=== PATIENT | male | born 1955 | race Caucasian/White ===

== ENCOUNTER → 2017-03-29 | Outpatient (CLI) | payer OTHER | LOC: BMCIMAGING 15:12 | PROVIDERS: ATTEND Internal Medicine Rheumatology | DX: M25.711 Osteophyte, right shoulder (principal); M25.712 Osteophyte, left shoulder; M19.011 Primary osteoarthritis, right shoulder; M19.012 Primary osteoarthritis, left shoulder; M17.12 Unilateral primary osteoarthritis, left knee ==

== ENCOUNTER 2017-04-20 05:52 | Emergency (ER) | payer OTHER ==
[2017-04-20 06:01] VITALS: RESP 16
--- NOTE | 2017-04-20 06:10 | EDPHY ---
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 Patient presents emergency room stating that he noticed when he got up this morning there was a boy ill and area of redness on the inner right thigh he became extremely concern as last time he had a hip infection it started out like this. He immediately came to the emergency room he does not have a fever any pain. He does tell me that he squeezed on the boil and did get drainage out. States white discharge. He states his symptoms just came on this morning. He is requesting here in emergency room IV antibiotics as he has had extensive complications from skin infection in the past. Of note upon arrival here he appears well nontoxic is very small area approximately 3 cm x 4 cm of non indurated no fluctuance area of redness on the inner thigh. There is a center area of darker pigmentation where this may have been the head of the boil. Otherwise no other areas of infection on his leg. This area is soft and minimally tender. Past Medical History: Hypertension, hyperlipidemia Past Surgical History: Right hip surgery with multiple revisions and a wound VAC from infection of the right hip prosthesis Social History: Denies daily use of drugs alcohol tobacco products, works here in the operating room Family History: Noncontributory ROS REVIEW OF SYSTEMS: A comprehensive 10 point review of systems is otherwise negative aside from elements mentioned in the history of present illness. Exam Constitutional triage nursing summary reviewed, vital signs reviewed, awake/ alert. Eyes normal conjunctivae and sclera, EOMI, PERRLA. HENT normal inspection, atraumatic, moist mucus membranes, no epistaxis, neck supple/ no meningismus, no raccoon eyes. Respiratory clear to auscultation bilaterally, normal breath sounds, no respiratory distress, no wheezing. Cardiovascular rate normal, regular rhythm, no murmur, no edema, distal pulses normal. Gastrointestinal soft, non-tender, no rebound, no guarding, normal bowel sounds, no distension, no pulsatile mass. Genitourinary no CVA tenderness. Musculoskeletal no midline vertebral tenderness, full range of motion, no calf swelling, no tenderness of extremities, no meningismus, good pulses, neurovascularly intact. Skin right thigh: Inner thigh region: Of note upon arrival here he appears well nontoxic is very small area approximately 3 cm x 4 cm of non indurated no fluctuance area of redness on the inner thigh. There is a center area of darker pigmentation where this may have been the head of the boil. pink, warm, & dry, no rash, skin atraumatic. Neurologic awake, alert and oriented x 3, AAOx3, moves all 4 extremities equally, motor intact, sensory intact, CN II-XII intact, normal cerebellar, normal vision, normal speech. Psychiatric normal mood/affect. Heme/Lymph/Immune no lymphadenopathy. Differential Diagnosis: Includes but is not limited to in a particular order, inner thigh cellulitis, [place], staph infection, MRSA, early abscess Medical Decision Making: Plan for this patient IV establishment check basic blood work including inflammatory markers ESR CRP, will give a dose of vancomycin here in the emergency room. We will also ultrasound this area to see if there is a pocket of pus. To see if there is anything that needs to be drained. Re-evaluation: 0629AM: I did do a bedside ultrasound images are saved on the ultrasound machine. There is no pus pocket or area that could be drained. There is cellulitis seen on the ultrasound. This may be due the patient draining it prior to arrival. Given that there is no large back pocket patient received IV vancomycin here and then I do recommend that he goes home on antibiotics Keflex and Bactrim and warm compresses 3 times a day for 20 minutes. He understands to watch this area very closely for further or worsening signs of infection this includes spreading of redness, worsening pain, worsening swelling or if he has any questions or concerns. If he has worsening symptoms he understands return emergency room immediately. At this time this areas located right inner thigh small circular area. No significant induration or fluctuance. No other cellulitic lesions on the leg. Does not involve the joint or hip. 0732AM: Patient is currently getting IV vancomycin. Once this is finished allowed to go home. He will be placed on Keflex and Bactrim. Blood work reviewed. No high white count inflammatory markers normal. Understands return precautions. Source: Patient - Personal History Current Tetanus/Diphtheria Vaccine: Yes Current Tetanus Diphtheria and Acellular Pertussis (TDAP): Yes Tetanus Vaccine Date: <10 YRS - Medical/Surgical History Hx Asthma: No Hx Chronic Respiratory Disease: No Hx Diabetes: No Hx Cardiac Disease: Yes Hx Renal Disease: No Hx Cirrhosis: No Hx Alcoholism: No Hx HIV/AIDS: No Hx Splenectomy or Spleen Trauma: No Other PMH: arthritis/r hip replacement; HTN, R shoulder surg, hypeerlipidemia - Social History Smoking Status: Former smoker Constitutional: Initial Vital Signs Temperature (C) 36.6 C 04/20/17 05:58 Heart Rate 75 04/20/17 05:58 Respiratory Rate 16 04/20/17 05:58 Blood Pressure 149/100 H 04/20/17 05:58 O2 Sat (%) 95 04/20/17 05:58 O2 Delivery Mode Room Air Allergies/Adverse Reactions: oxycodone HCl [From OxyContin] Allergy (Intermediate, Verified 04/20/17 05:55) Rash doxycycline Allergy (Mild, Verified 04/20/17 05:55) TURNED RED Home Medications: Medication Instructions Recorded Losartan/Hctz 50/12.5 [Hyzaar 1 tab PO DAILY 10/29/12 50/12.5MG (RX)] Aspirin [Aspirin 81mg (OTC)] 81 mg PO DAILY 01/11/13 Ibuprofen 600 mg PO Q4 PRN 01/11/13 Metoprolol Succinate Xr [Toprol Xl 50 mg PO DAILY 01/11/13 50 mg (RX)] Multivitamins [Tab-A-Caryn] 1 each PO DAILY 01/11/13 EPINEPHrine [Epipen 0.3 MG (RX)] 0.3 mg IM ONCE #1 syr 05/27/15 Cephalexin [Keflex (*)] 500 mg PO Q6H #28 cap 04/20/17 Simvastatin 04/20/17 Sulfamethox/Tmp 800/160 mg 1 tab PO BID #14 tab 04/20/17 [Bactrim Ds] Medical Decision Making - Data Points Laboratory Results: Laboratory Results 04/20/17 06:30 04/20/17 06:30 04/20/17 04/20/17 06:30 06:30 WBC 5.41 10^3/uL 10^3/uL (3.80-9.50) RBC 4.40 10^6/uL 10^6/uL (4.40-6.38) Hgb 13.8 g/dL g/dL (13.7-17.5) Hct 40.6 % % (40.0-51.0) MCV 92.3 fL fL (81.5-99.8) MCH 31.4 pg pg (27.9-34.1) MCHC 34.0 g/dL g/dL (32.4-36.7) RDW 13.3 % % (11.5-15.2) Plt Count 160 10^3/uL 10^3/uL (150-400) MPV 9.1 fL fL (8.7-11.7) Neut % (Auto) 57.9 % % (39.3-74.2) Lymph % (Auto) 19.8 % % (15.0-45.0) [place] % (Auto) 16.6 % H % (4.5-13.0) Eos % (Auto) 4.3 % % (0.6-7.6) Baso % (Auto) 0.7 % % (0.3-1.7) Nucleat RBC Rel Count 0.0 % % (0.0-0.2) Absolute Neuts (auto) 3.13 10^3/uL 10^3/uL (1.70-6.50) Absolute Lymphs (auto) 1.07 10^3/uL 10^3/uL (1.00-3.00) Absolute Monos (auto) 0.90 10^3/uL H 10^3/uL (0.30-0.80) Absolute Eos (auto) 0.23 10^3/uL 10^3/uL (0.03-0.40) Absolute Basos (auto) 0.04 10^3/uL 10^3/uL (0.02-0.10) Absolute Nucleated RBC 0.00 10^3/uL 10^3/uL (0-0.01) Immature Gran % 0.7 % % (0.0-1.1) Immature Gran # 0.04 10^3/uL 10^3/uL (0.00-0.10) ESR 8 MM/HR MM/HR (0-20) Sodium 132 mEq/L L mEq/L (134-144) Potassium 4.3 mEq/L mEq/L (3.5-5.2) Chloride 102 mEq/L mEq/L (97-110) Carbon Dioxide 23 mEq/l mEq/l (22-31) Anion Gap 7 mEq/L L mEq/L (8-16) BUN 24 mg/dL H mg/dL (7-23) Creatinine 0.9 mg/dL mg/dL (0.7-1.3) Estimated GFR > 60 Glucose 101 mg/dL H mg/dL (70-100) Calcium 9.3 mg/dL mg/dL (8.5-10.4) C-Reactive Protein < 5.0 mg/L mg/L (<10.0) Departure - Departure Disposition: Home, Routine, Self-Care Clinical Impression: Cellulitis Qualifiers: Site of cellulitis: extremity Site of cellulitis of extremity: lower extremity Laterality: right Qualified Code(s): L03.115 - Cellulitis of right lower limb Condition: Good Instructions: Cellulitis (ED) Additional Instructions: 1. Watch this area closely if you feel that is getting worse including spreading , larger area, worsening pain or fever or you have concerns about a please return emergency room. 2. Use warm compresses 3 times a day for 20 minutes. 3. I recommend he take both antibiotics Keflex and Bactrim. 4. Return emergency room if you have any further symptoms questions or concerns I do recommend close follow-up with her primary care doctor. Referrals: Leonardo Foy MD [Primary Care Provider] - As per Instructions Prescriptions: Cephalexin [Keflex (*)] 500 mg PO Q6H #28 cap Sulfamethox/Tmp 800/160 mg [Bactrim Ds] 1 tab PO BID #14 tab
[2017-04-20] MEDS ORDERED: VANCOMYCIN 1.5 GM in D5W 250 ML IV ONE (06:22)
[2017-04-20 06:38] LABS: % IMMATURE GRANULYOCYTES 0.7 % (0.0-1.1); ABSOLUTE IMMATURE GRANULOCYTES 0.04 10^3/uL (0.00-0.10); ADD DIFF? NO; ADD MORPH? NO; ADD SCAN? NO; ATYPICAL LYMPHOCYTE FLAG 0 (0-99); FRAGMENT RBC FLAG 0 (0-99); HEMATOCRIT 40.6 % (40.0-51.0); HEMOGLOBIN 13.8 g/dL (13.7-17.5); LEFT SHIFT FLG 0 (0-99); LIPEMIA HEMOLYSIS FLAG 90 (0-99); MEAN CELL HEMOGLOBIN 31.4 pg (27.9-34.1); MEAN CELL VOLUME 92.3 fL (81.5-99.8); MEAN PLATELET VOLUME 9.1 fL (8.7-11.7); PLATELET CLUMPS FLAG 0 (0-99); PLATELET COUNT 160 10^3/uL (150-400); RED CELL DISTRIBUTION WIDTH 13.3 % (11.5-15.2)
[2017-04-20 06:49] LABS: SEDIMENTATION RATE 8 MM/HR (0-20)
[2017-04-20 06:53] LABS: ANION GAP 7 mEq/L (8-16); C-REACTIVE PROTEIN < 5.0 mg/L (<10.0); CALCIUM 9.3 mg/dL (8.5-10.4); CARBON DIOXIDE 23 mEq/l (22-31); CHLORIDE 102 mEq/L (97-110); CREATININE 0.9 mg/dL (0.7-1.3); GLOMERULAR FILTRATION RATE > 60; GLUCOSE 101 mg/dL (70-100); POTASSIUM 4.3 mEq/L (3.5-5.2); SODIUM 132 mEq/L (134-144)
[2017-04-20 09:58] VITALS: BP 113/72; PULSE 65; TEMP 97.5; O2SAT 93
== END 2017-04-20 09:57 | disposition home or self-care (01) ==
DX: L03.115 Cellulitis of right lower limb (principal); I10 Essential (primary) hypertension; Z79.82 Long term (current) use of aspirin; Z87.891 Personal history of nicotine dependence
CPT/HCPCS: 96365; 96366; J3370

== ENCOUNTER 2017-07-03 11:47 | Emergency (ER) | payer OTHER ==
[2017-07-03 11:56] VITALS: BP 127/90; PULSE 82; RESP 18; TEMP 98.2; O2SAT 92
[2017-07-03] MEDS ORDERED: PROPARACAINE 0.5% 15 ML OPHT DROP ONE (13:11)
[2017-07-03] MEDS ORDERED: FLUORESCEIN SODIUM 1 MG STRIP OP ONE (13:11)
--- NOTE | 2017-07-03 13:30 | EDPHY ---
H & P Time Seen by Provider: 07/03/17 13:22 HPI/ROS: CHIEF COMPLAINT: Eye pain HISTORY OF PRESENT ILLNESS: The patient is a 62-year-old male presenting with acute left eye injury. The patient's badge hit his left eye while trying to badge in today. Initially he had moderate pain in his left eye. The pain has now resolved, but continues to be red. No change in vision. The patient wears glasses. He denies headache. Past Medical/Surgical History: Arthritis, Hypertension PSH: Right shoulder surgery, Right hip replacement Social History: Employee at [employer]. Smoking Status: Former smoker Physical Exam: EYE exam: Lids: no proptosis, no periorbital erythema or swelling, no vesicles Conjunctivae: Erythema on medial aspect, no discharge Pupils: equal round and reactive to light EOMI Cornea: Normal inspection, fluorescein exam is normal Anterior chamber: Clear, no hyphema Constitutional: Initial Vital Signs Temperature (C) 36.8 C 07/03/17 11:54 Heart Rate 82 07/03/17 11:54 Respiratory Rate 18 07/03/17 11:54 Blood Pressure 127/90 H 07/03/17 11:54 O2 Sat (%) 92 07/03/17 11:54 O2 Delivery Mode Room Air Allergies/Adverse Reactions: oxycodone HCl [From OxyContin] Allergy (Intermediate, Verified 07/03/17 11:52) Rash doxycycline Allergy (Mild, Verified 07/03/17 11:52) TURNED RED Home Medications: Medication Instructions Recorded Losartan/Hctz 50/12.5 [Hyzaar 1 tab PO DAILY 10/29/12 50/12.5MG (RX)] Aspirin [Aspirin 81mg (OTC)] 81 mg PO DAILY 01/11/13 Ibuprofen 600 mg PO Q4 PRN 01/11/13 Metoprolol Succinate Xr [Toprol Xl 50 mg PO DAILY 01/11/13 50 mg (RX)] Multivitamins [Tab-A-Caryn] 1 each PO DAILY 01/11/13 EPINEPHrine [Epipen 0.3 MG (RX)] 0.3 mg IM ONCE #1 syr 05/27/15 Simvastatin 04/20/17 Medical Decision Making ED Course/Re-evaluation: There is no evidence of corneal abrasion. Differential Diagnosis: Differential diagnosis includes hyphema, acute iritis, traumatic mydriasis, corneal abrasion, globe rupture. Departure - Departure Disposition: Home, Routine, Self-Care Clinical Impression: Eye injury Qualifiers: Encounter type: initial encounter Laterality: left Qualified Code(s): S05.92XA - Unspecified injury of left eye and orbit, initial encounter Condition: Good Instructions: Eye Pain (ED) Additional Instructions: If you develop a change in vision, increased eye pain, headache, or worsening concerns please followup with your [facility]. Referrals: Stefania Maldonado RN, NURSING ADMIN [Primary Care Provider] - As per Instructions Francine Crook MD [Medical Doctor] - As per Instructions () Report Scribed for: Funmilayo Mathews Report Scribed by: Lucy Parks Date of Report: 07/03/17 Time of Report: 13:31 Physician Review and Approval Statement: 07/03/17 13:31 Portions of this note were transcribed by a medical claims representative. I personally performed the history, physical exam, and medical decision-making; and confirmed the accuracy of the information in the transcribed note.
== END 2017-07-03 13:45 | disposition home or self-care (01) ==
DX: S05.92XA Unspecified injury of left eye and orbit, initial encounter (principal); I10 Essential (primary) hypertension; Z79.82 Long term (current) use of aspirin; Z87.891 Personal history of nicotine dependence; W22.8XXA Striking against or struck by other objects, initial encounter

== ENCOUNTER → 2017-11-28 | Outpatient (CLI) | payer OTHER | LOC: FIMAGING 09:13 | DX: J18.9 Pneumonia, unspecified organism (principal) ==

== ENCOUNTER 2018-03-11 09:55 | Emergency (ER) | payer OTHER ==
[2018-03-11 11:00] LABS: PLATELET COUNT 241 10^3/uL (150-400)
[2018-03-11] MEDS ORDERED: IOPAMIDOL (ISOVUE-300) 100 ML BTL ONE (11:15)
--- NOTE | 2018-03-11 11:19 | EDPHY ---
H & P Stated Complaint: LLQ abd pain x 4 days, blood in stool starting yest. Time Seen by Provider: 03/11/18 10:09 HPI/ROS: 62-year-old male presents complaining approximately 3-4 days of left lower quadrant pain and diarrhea and then noted yesterday large amount of blood in his stool however no blood in his stool today. He denies ever having seen blood in his stool prior to this episode he denies history of hemorrhoids. He does have a prior history of diverticulitis, approximately 4 years ago. Review of systems As per HPI General no fever no chills no weakness HEENT no eye pain no eye discharge. No eye redness, no sore throat Respiratory no cough, no shortness of breath Cardiac no chest pain, no peripheral edema GI positive abdominal pain positive diarrhea positive blood in stool no constipation, no nausea, no vomiting no flank pain, no hematuria, no dysuria Musculoskeletal no myalgias, no joint pain Heme no easy bruising, no easy bleeding Endo no polyuria, no polydipsia Skin no rashes, no pruritus Neuro no syncope, no dizziness, no headaches Psych is no suicidal ideation, no homicidal ideation Source: Patient Exam Limitations: No limitations - Personal History Current Tetanus Diphtheria and Acellular Pertussis (TDAP): Yes Tetanus Vaccine Date: <10 YRS - Medical/Surgical History Hx Asthma: No Hx Chronic Respiratory Disease: No Hx Diabetes: No Hx Cardiac Disease: Yes Hx Renal Disease: No Hx Cirrhosis: No Hx Alcoholism: No Hx HIV/AIDS: No Hx Splenectomy or Spleen Trauma: No Other PMH: arthritis/r hip replacement; HTN, R shoulder surg, hypeerlipidemia - Family History Significant Family History: No pertinent family hx - Social History Smoking Status: Former smoker Alcohol Use: None Drug Use: None - Physical Exam Exam: 62-year-old male alert and oriented no acute distress nontoxic appearance, afebrile, slightly pale HEENT atraumatic normocephalic, extraocular muscles intact, anicteric Oropharynx negative for erythema negative exudate, tolerating her own secretions Neck supple no meningismus Lungs clear to auscultation bilaterally Heart regular rate and rhythm without murmur rub or gallop Abdomen nondistended normoactive bowel sounds soft, very mild llq ttp, no guarding ,no rebound rectal light brown stool, no hemmrhoids, stool sent for occult blood-negative Back no CVA tenderness, no step-offs, no spinal tenderness Extremities no cyanosis clubbing or edema Neuro alert and oriented, no focal deficits Constitutional: Initial Vital Signs Temperature (C) 36.8 C 03/11/18 10:06 Heart Rate 88 03/11/18 10:06 Respiratory Rate 16 03/11/18 10:06 Blood Pressure 107/74 03/11/18 10:06 O2 Sat (%) 94 03/11/18 10:06 O2 Delivery Mode Room Air Allergies/Adverse Reactions: oxycodone HCl [From OxyContin] Allergy (Intermediate, Verified 07/03/17 11:52) Rash doxycycline Allergy (Mild, Verified 07/03/17 11:52) TURNED RED Home Medications: Medication Instructions Recorded Losartan/Hctz 50/12.5 [Hyzaar 1 tab PO DAILY 10/29/12 50/12.5MG (RX)] Aspirin [Aspirin 81mg (OTC)] 81 mg PO DAILY 01/11/13 Ibuprofen 600 mg PO Q4 PRN 01/11/13 Metoprolol Succinate Xr [Toprol Xl 50 mg PO DAILY 01/11/13 50 mg (RX)] Multivitamins [Tab-A-Caryn] 1 each PO DAILY 01/11/13 EPINEPHrine [Epipen 0.3 MG (RX)] 0.3 mg IM ONCE #1 syr 05/27/15 Simvastatin 04/20/17 Amoxicillin/Clavulanate Pot 875 mg PO BID #20 tab 03/11/18 [Augmentin 875 MG TAB (*)] Medical Decision Making - Diagnostics Imaging Results: Imaging Impressions Abdomen CT 03/11/18 10:25 Impression: 1. No definite diverticulitis although diverticulosis is seen. 2. Mild thickening of the wall of the descending and sigmoid colon as well as the rectosigmoid area which could reflect colitis. 3. See above report for additional findings. Results called and discussed with Aracelis Ohara MD on 03/11/2018 at 12:00 ED Course/Re-evaluation: Pt seen and evaluated for llq pain ,diarrhea, blood in stool. Iv established, given one liter normal saline labs sent cbc nml wbc, with slight elevated % bands hgb 12.8, after fluids hgb 10 electrolytes na and cl low on initial labs, after fluids improving CT abdomen diverticuli noted, possibly early or mild diverticulitis, some thickened descending colon c/w colitis Imp/Plan 1) llq pain, diarrhea, left shift- possible early diverticultis, tolerating p.o. will start augmentin 2) blood in stool by hx yesterday, diverticuli on CT occult neg today., Hgb 12 and 10 afer hydration pt feeling well but anemia concerning for diverticular bleed needs colonoscopy discussed with pt about admission versus home with immediate return if any further bleeding and to contact [place] first thing Monday morning to see about arranging colonoscopy 3) hyponatremia Patient states he drank a massive amount of water over the last 4 days so I suspect this is hypervolemic hyponatremia, initially I was concerned that it may be hyponatremia with dehydration and had given this patient 2 L of normal saline he did have an increase in his sodium after the 2 L of normal saline from 124-127 Later revealed that he had been drinking massive amounts of water. I advised him to cut back on the water to include Gatorade or Pedialyte in his fluid replacement. Differential Diagnosis: Differential diagnosis considered but not limited to Diverticulitis, diverticulosis, pancreatitis, coli cystitis, appendicitis, diverticular bleeding, lower GI bleeding, hemorrhoids - Data Points Laboratory Results: Laboratory Results 03/11/18 13:15 03/11/18 13:15 03/11/18 03/11/18 03/11/18 13:15 13:15 12:34 WBC RBC Hgb 10.8 g/dL L g/dL (13.7-17.5) Hct 31.0 % L % (40.0-51.0) MCV MCH MCHC RDW Plt Count MPV Neut % (Auto) Lymph % (Auto) [place] % (Auto) Eos % (Auto) Baso % (Auto) Nucleat RBC Rel Count Absolute Neuts (auto) Absolute Lymphs (auto) Absolute Monos (auto) Absolute Eos (auto) Absolute Basos (auto) Absolute Nucleated RBC Immature Gran % Seg Neutrophils % Band Neutrophils % Lymphocytes % Monocytes % Eosinophils % Immature Gran # Absolute Seg Neuts Absolute Band Neuts Absolute Lymphocytes Absolute Monocytes Absolute Eosinophils Platelet Estimate Sodium 127 mEq/L L mEq/L (135-145) Potassium 4.6 mEq/L mEq/L (3.5-5.2) Chloride 99 mEq/L mEq/L (97-110) Carbon Dioxide 19 mEq/l L mEq/l (22-31) Anion Gap 9 mEq/L mEq/L (8-16) BUN 21 mg/dL mg/dL (7-23) Creatinine 1.0 mg/dL mg/dL (0.7-1.3) Estimated GFR > 60 Glucose 90 mg/dL mg/dL (70-100) Calcium 8.0 mg/dL L mg/dL (8.5-10.4) Total Bilirubin AST ALT Alkaline Phosphatase Total Protein Albumin Lipase Stool Occult Bld Scrn NEGATIVE (NEGATIVE) 03/11/18 03/11/18 10:25 10:25 WBC 6.62 10^3/uL 10^3/uL (3.80-9.50) RBC 4.07 10^6/uL L 10^6/uL (4.40-6.38) Hgb 12.7 g/dL L g/dL (13.7-17.5) Hct 36.4 % L % (40.0-51.0) MCV 89.4 fL fL (81.5-99.8) MCH 31.2 pg pg (27.9-34.1) MCHC 34.9 g/dL g/dL (32.4-36.7) RDW 13.2 % % (11.5-15.2) Plt Count 241 10^3/uL 10^3/uL (150-400) MPV 8.6 fL L fL (8.7-11.7) Neut % (Auto) Not Reported Lymph % (Auto) Not Reported [place] % (Auto) Not Reported Eos % (Auto) Not Reported Baso % (Auto) Not Reported Nucleat RBC Rel Count 0.0 % % (0.0-0.2) Absolute Neuts (auto) Not Reported Absolute Lymphs (auto) Not Reported Absolute Monos (auto) Not Reported Absolute Eos (auto) Not Reported Absolute Basos (auto) Not Reported Absolute Nucleated RBC 0.00 10^3/uL 10^3/uL (0-0.01) Immature Gran % Not Reported Seg Neutrophils % 52 % % Band Neutrophils % 13 % % Lymphocytes % 14 % % Monocytes % 18 % % Eosinophils % 3 % % Immature Gran # Not Reported Absolute Seg Neuts 3.4 K/MM3 K/MM3 (1.8-7) Absolute Band Neuts 0.9 K/MM3 H K/MM3 (0-0.7) Absolute Lymphocytes 0.9 K/mm3 L K/mm3 (1.0-4.8) Absolute Monocytes 1.2 K/mm3 H K/mm3 (0-0.8) Absolute Eosinophils 0.2 K/mm3 K/mm3 (0-0.5) Platelet Estimate ADEQUATE (ADEQ) Sodium 124 mEq/L L mEq/L (135-145) Potassium 4.7 mEq/L mEq/L (3.5-5.2) Chloride 94 mEq/L L mEq/L (97-110) Carbon Dioxide 18 mEq/l L mEq/l (22-31) Anion Gap 12 mEq/L mEq/L (8-16) BUN 24 mg/dL H mg/dL (7-23) Creatinine 1.1 mg/dL mg/dL (0.7-1.3) Estimated GFR > 60 Glucose 95 mg/dL mg/dL (70-100) Calcium 9.4 mg/dL mg/dL (8.5-10.4) Total Bilirubin 0.7 mg/dL mg/dL (0.1-1.4) AST 17 IU/L IU/L (17-59) ALT 26 IU/L IU/L (21-72) Alkaline Phosphatase 78 IU/L IU/L (38-126) Total Protein 7.1 g/dL g/dL (6.3-8.2) Albumin 3.7 g/dL g/dL (3.5-5.0) Lipase 504 IU/L H IU/L (23-300) Stool Occult Bld Scrn Medications Given: Discontinued Medications Amoxicillin/Clavulanate Potassium (Augmentin 875mg) 875 mg PO EDNOW ONE PRN Reason: Protocol Stop: 03/11/18 14:34 Last Admin: 03/11/18 14:40 Dose: 875 mg Sodium Chloride (Ns) 1,000 mls @ 0 mls/hr IV ONCE ONE PRN Reason: Wide Open Stop: 03/11/18 11:52 Last Admin: 03/11/18 11:55 Dose: 1,000 mls Sodium Chloride (Ns) 1,000 mls @ 0 mls/hr IV ONCE ONE PRN Reason: Wide Open Stop: 03/11/18 12:33 Last Admin: 03/11/18 12:44 Dose: 1,000 mls Departure - Departure Disposition: Home, Routine, Self-Care Clinical Impression: Diverticulitis large intestine, Lower GI bleeding Condition: Good Instructions: Gastrointestinal Bleeding (ED), Diverticulitis (ED), Rectal Bleeding (ED), Diverticulitis Diet (ED) Referrals: Stefania Mitchell, RN, [facility] [employer] [employer] [Primary Care Provider] - As per Instructions Prescriptions: Amoxicillin/Clavulanate Pot [Augmentin 875 MG TAB (*)] 875 mg PO BID #20 tab
[2018-03-11] MEDS ORDERED: NS 1,000 ML IV ONE ×2 (11:51→12:32)
[2018-03-11] MEDS ORDERED: AMOXICILLIN/CLAVULANATE POT 875/125 MG TAB PO ONE (14:33)
[2018-03-11 14:45] VITALS: BP 147/84
== END 2018-03-11 14:43 | disposition home or self-care (01) ==
LOC: CED 09:55
DX: K57.33 Diverticulitis of large intestine without perforation or abscess with bleeding (principal); I10 Essential (primary) hypertension; R19.7 Diarrhea, unspecified; Z79.82 Long term (current) use of aspirin; Z87.891 Personal history of nicotine dependence
CPT/HCPCS: 74177-PO; 80048-PO; 80053-PO; 82270-PO; 83690-PO; 85014-PO; 85018-PO; 85025-PO; Q9967

== ENCOUNTER 2018-04-02 10:03 | Inpatient (IN) | payer OTHER ==
--- NOTE | 2018-04-02 10:17 | CPEKG ---
Heart Rate: 84 RR Interval: 714 P-R Interval: 168 QRSD Interval: 94 QT Interval: 364 QTC Interval: 431 P Humphrey: 23 QRS Humphrey: 59 T Wave Humphrey: 8 EKG Severity - OTHERWISE NORMAL ECG - EKG Impression: SINUS RHYTHM EKG Impression: VENTRICULAR PREMATURE COMPLEX Electronically Signed By: Manuel Dial 02-Apr-2018 11:07:22
[2018-04-02] MEDS ORDERED: NS 500 ML IV ONE (10:18)
[2018-04-02] MEDS ORDERED: IOPAMIDOL (ISOVUE 370) 100 ML BTL IV ONE (10:27)
--- NOTE | 2018-04-02 10:27 | EDPHY ---
H & P <JayroManuel cowart - Last Filed: 04/02/18 10:42> Stated Complaint: l abd pain/hx diverticulitis - Personal History Current Tetanus/Diphtheria Vaccine: Yes Tetanus Vaccine Date: <10 YRS - Medical/Surgical History Hx Asthma: No Hx Chronic Respiratory Disease: No Hx Diabetes: No Hx Cardiac Disease: No Hx Renal Disease: No Hx Cirrhosis: No Hx Alcoholism: No Hx HIV/AIDS: No Hx Splenectomy or Spleen Trauma: No Other PMH: arthritis/r hip replacement; HTN, R shoulder surg, hypeerlipidemia diverticulitis - Social History Smoking Status: Former smoker <Kendra Camargo - Last Filed: 04/02/18 13:23> Time Seen by Provider: 04/02/18 10:09 HPI/ROS: CHIEF COMPLAINT: "I am dizzy and my kidneys hurt" HISTORY OF PRESENT ILLNESS: 62-year-old male history of diverticulitis, seen most recently at [facility] diagnosed with diverticulitis and started on Augmentin on 03/11/2018, states that he has been feeling weak and tired, worse this morning when he came to work (today is Monday ). 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 He states that since this morning he has been feeling bilateral subscapular pain and bilateral flank pain as well as continued left lower quadrant pain with continued diarrhea intermittently bloody appearance and green appearance. Denies: Fever, chills, chest pain, dyspnea. He has taken his normal dose of antihypertensive, denies accidentally taking increased dose. REVIEW OF SYSTEMS: A ten point review of systems was performed and is negative with the exception of the items mentioned in the HPI PAST MEDICAL & SURGICAL HISTORY: Recurrent diverticulitis. Hypertension. Hyperlipidemia. Right hip arthroplasty. SOCIAL HISTORY:Is nonsmoker. No drug use. No alcohol use. Works in engineering service is a [employer] PHYSICAL EXAM (Prior to examination, patient consented to physical exam, hands were washed and my usual and customary physical exam procedures followed) 1) GENERAL: Well-developed, well-nourished, alert and oriented. Appears to be in no acute distress. 2) HEAD: Normocephalic, atraumatic 3) HEENT: Pupils equal, round, reactive to light bilaterally. Sclera anicteric. 4) NECK: Full range of motion, no meningeal signs. 5) LUNGS: Clear auscultation bilaterally, no wheezes, no rhonchi, no retractions. 6) HEART: Regular rate and rhythm, no murmur, no heave, no gallop. 7) ABDOMEN: No guarding, no rebound, no focal tenderness, negative McBurney's, negative Hammond's, negative Rovsing's, negative peritoneal sign, 8) MUSCULOSKELETAL: Moving all extremities, no focal areas of tenderness, no obvious trauma. No peripheral edema or discoloration. 9) BACK: No CVA tenderness, no midline vertebral tenderness, no fluctuance, no step-off, no obvious trauma, no visual or palpable abnormality. 10) SKIN: No rash, no petechiae. 11) Psychiatric: Patient is oriented X 3, there is no agitation. DIFFERENTIAL DIAGNOSIS: In no particular order including but not limited to diverticular abscess, perforation, aortic dissection, [place] (Raman,Kendra Laly) Constitutional: Initial Vital Signs Temperature (C) 36.3 C 04/02/18 10:05 Heart Rate 94 04/02/18 10:05 Respiratory Rate 18 04/02/18 10:05 Blood Pressure 53/41 L 04/02/18 10:05 O2 Sat (%) 97 04/02/18 10:05 O2 Delivery Mode Nasal Cannula O2 (L/minute) 2 Allergies/Adverse Reactions: doxycycline Allergy (Mild, Verified 04/02/18 10:05) TURNED RED oxycodone HCl [From OxyContin] Allergy (Mild, Verified 04/02/18 12:46) Rash Home Medications: Medication Instructions Recorded Aspirin [Aspirin 81mg (OTC)] 81 mg PO DAILY 01/11/13 Metoprolol Succinate Xr [Toprol Xl 50 mg PO DAILY 01/11/13 50 mg (RX)] Multivitamins [Tab-A-Caryn] 1 each PO DAILY 01/11/13 EPINEPHrine [Epipen 0.3 MG (RX)] 0.3 mg IM ONCE #1 syr 05/27/15 Ciprofloxacin [Cipro] 500 mg PO BID 04/02/18 Diclofenac Sodium 1% [Voltaren Gel 1 yamila TP TID PRN 04/02/18 (*)] Etodolac Er 600mg 600 mg PO BID 04/02/18 Glucosamine Sulfate [Glucosamine 500 mg PO DAILY 04/02/18 Sulfate 500 MG (*)] Losartan/Hydrochlorothiazide 1 each PO DAILY 04/02/18 [Losartan-Hctz 100-12.5 mg Tab] Simvastatin 10 mg PO DAILY 04/02/18 metroNIDAZOLE [Flagyl 500 mg (*)] 500 mg PO TID 04/02/18 Medical Decision Making - Diagnostics Imaging: Discussed imaging studies w/ fisher scallop Radiologist, I viewed and interpreted images myself <Manuel Dial - Last Filed: 04/02/18 10:42> <Kendra Camargo - Last Filed: 04/02/18 13:23> - Diagnostics Imaging Results: Imaging Impressions Abdomen/Pelvis CT 04/02/18 10:34 Impression: 1. Extensive right and left-sided coronary artery atherosclerotic calcifications , with no cardiomegaly or congestive heart failure. 2. Bilateral areas of parenchymal and/or subpleural fibrosis, with interim resolution of the right middle lobe infiltrate compared to a chest radiograph of 12/08/2017. UNENHANCED CT SCAN OF THE ABDOMEN AND PELVIS: Liver: Normal. Bile Ducts: Normal. Gallbladder: There are no calcified gallstones, wall thickening, or pericholecystic fluid. The gallbladder is mildly hydropic. Pancreas: Normal. Spleen: Normal. There is a small accessory splenule in the left upper quadrant on series 3, image 199. Adrenal Glands: Normal. Kidneys/Ureters/Urinary Bladder: There is a small hyperdense nodule in the anterior midpole of the left kidney on series 3, image 234-237 with Hounsfield unit measurement of 52.There is a small hypodense nodule seen in this same location on the previous CT scan from February 2018(series 4, image 103, with a Hounsfield unit measurement of 60), however this is reassuringly unchanged from the 2010 study (at which time it also had a contrast enhanced HU of 60; please reference series 3, image 262 from 08/19/2011). There is a punctate calcification associated with the anterior midpole the left kidney on series 3, image 238. There is no hydronephrosis. There is no ureterolithiasis or ureteral dilatation. GI Tract/Mesentery: There is a small hiatal hernia present. The stomach is otherwise unremarkable. There is no small or large bowel dilatation, or wall thickening. There are some rare sigmoid colon diverticula, with no pericolonic mesenteric edema. There is a normal appearance of the appendix identified on series 3, images 272-280. Retroperitoneum: There is no adenopathy along the aortoiliac vascular tree, or retroperitoneal fluid collection. Peritoneum: There is no ascites, free air, or localized fluid collection.] A few shotty right-sided mesenteric lymph nodes seen on axial series 3, images 261 -272 are unchanged, and not pathologically enlarged. There is moderate centripetal obesity. Vessels: The abdominal aorta is normal in size, and tapers normally. The IVC is normal in caliber. Reproductive Organs: The prostate gland and seminal vesicles are unremarkable, with slightly limited evaluation because of beam hardening artifact from adjacent hip arthroplasty. Abdominal Wall: There is a small fat-containing periumbilical hernia. Osseous Structures: There is mild anterior height reduction at L1, seen within the context of prominent ventral traction osteophytes. There is advanced degenerative disk space narrowing with vacuum disk phenomena at T12-L1, L1-L2, L2-L3, L3-L4, and L4-L5. There are trace degenerative retrolistheses at L1-L2 and L2-L3. There is facet hypertrophy in the mid to lower lumbar spine, particularly pronounced at the lumbosacral junction. There are degenerative features of the sacroiliac joints. The patient has had a prior complete right hip replacement. Impression: 1. Small hiatal hernia. 2. Stable small hyperdense cyst associated with the anterior midpole of the left kidney, dating back to 2010. There is a 1 mm left nephrolith, but no obstructive uropathy. 3. Minimal sigmoid colon diverticulosis, without active diverticulitis. 4. Small fat-containing periumbilical hernia. 5. Status post right hip arthroplasty. Chest CT 04/02/18 10:34 Impression: 1. Extensive right and left-sided coronary artery atherosclerotic calcifications , with no cardiomegaly or congestive heart failure. 2. Bilateral areas of parenchymal and/or subpleural fibrosis, with interim resolution of the right middle lobe infiltrate compared to a chest radiograph of 12/08/2017. UNENHANCED CT SCAN OF THE ABDOMEN AND PELVIS: Liver: Normal. Bile Ducts: Normal. Gallbladder: There are no calcified gallstones, wall thickening, or pericholecystic fluid. The gallbladder is mildly hydropic. Pancreas: Normal. Spleen: Normal. There is a small accessory splenule in the left upper quadrant on series 3, image 199. Adrenal Glands: Normal. Kidneys/Ureters/Urinary Bladder: There is a small hyperdense nodule in the anterior midpole of the left kidney on series 3, image 234-237 with Hounsfield unit measurement of 52.There is a small hypodense nodule seen in this same location on the previous CT scan from February 2018(series 4, image 103, with a Hounsfield unit measurement of 60), however this is reassuringly unchanged from the 2011 study (at which time it also had a contrast enhanced HU of 60; please reference series 3, image 262 from 08/19/2011). There is a punctate calcification associated with the anterior midpole the left kidney on series 3, image 238. There is no hydronephrosis. There is no ureterolithiasis or ureteral dilatation. GI Tract/Mesentery: There is a small hiatal hernia present. The stomach is otherwise unremarkable. There is no small or large bowel dilatation, or wall thickening. There are some rare sigmoid colon diverticula, with no pericolonic mesenteric edema. There is a normal appearance of the appendix identified on series 3, images 272-280. Retroperitoneum: There is no adenopathy along the aortoiliac vascular tree, or retroperitoneal fluid collection. Peritoneum: There is no ascites, free air, or localized fluid collection.] A few shotty right-sided mesenteric lymph nodes seen on axial series 3, images 261 -272 are unchanged, and not pathologically enlarged. There is moderate centripetal obesity. Vessels: The abdominal aorta is normal in size, and tapers normally. The IVC is normal in caliber. Reproductive Organs: The prostate gland and seminal vesicles are unremarkable, with slightly limited evaluation because of beam hardening artifact from adjacent hip arthroplasty. Abdominal Wall: There is a small fat-containing periumbilical hernia. Osseous Structures: There is mild anterior height reduction at L1, seen within the context of prominent ventral traction osteophytes. There is advanced degenerative disk space narrowing with vacuum disk phenomena at T12-L1, L1-L2, L2-L3, L3-L4, and L4-L5. There are trace degenerative retrolistheses at L1-L2 and L2-L3. There is facet hypertrophy in the mid to lower lumbar spine, particularly pronounced at the lumbosacral junction. There are degenerative features of the sacroiliac joints. The patient has had a prior complete right hip replacement. Impression: 1. Small hiatal hernia. 2. Stable small hyperdense cyst associated with the anterior midpole of the left kidney, dating back to 2010. There is a 1 mm left nephrolith, but no obstructive uropathy. 3. Minimal sigmoid colon diverticulosis, without active diverticulitis. 4. Small fat-containing periumbilical hernia. 5. Status post right hip arthroplasty. ED Course/Re-evaluation: 10:23 a.m.: After evaluating the patient I discussed case with secondary supervising physician Dr. Manuel Dial in the ER. The patient meets initial sepsis screening criteria. He is currently hypotensive, afebrile. Will obtain laboratory studies including CT imaging of the chest abdomen and pelvis to evaluate for possible vascular etiology such as dissection, evaluate possible diverticular perforation or abscess. 10:39 a.m.: The patient has a noted I-STAT creatinine of 2.9 which is up from 7 days ago at 1.2 11:55 a.m.: Consultation with hospitalist, Jessica, admit to Dr. Kendall PCU. 1205 am: Dr Misbah Dickerson nephrology consulted. (Kendra Camargo) Other Provider: 1028: Assessed patient in conjunction with EDELMIRA Camargo. He started treatment on Augmentin for sigmoid diverticulitis 3 weeks ago. He continues to have some LLQ pain and tenderness on exam, but feels this has improved while on antibiotics. His BP is currently 78/45 and he appears mildly pale. I agree with EDELMIRA Camargo's assessment and treatment plan. Abdominal CT ordered. Creatinine is 2.9. This could indicate kidney/ureteral obstruction. CT changed to non-contrast. Consulted with Dr. Gamble, surgery. He will assess patient in the ED. Critical care time spent by me, Dr. Dial, exclusively with this patient was 35 minutes, exclusive of PA time and exclusive of procedures. The organ system at risk was multisystem. Time spent in serial assessments of the patient, consideration of interventions, surgery consultation, and review of labs and imaging. (Manuel Dial) - Data Points Laboratory Results: Laboratory Results 04/02/18 10:20 04/02/18 10:20 04/02/18 04/02/18 04/02/18 11:15 10:40 10:28 WBC RBC Hgb POC Hgb 13.6 gm/dL L gm/dL (13.7-17.5) Hct POC Hct 40 % % (40-51) MCV MCH MCHC RDW Plt Count MPV Neut % (Auto) Lymph % (Auto) Meigs % (Auto) Eos % (Auto) Baso % (Auto) Nucleat RBC Rel Count Absolute Neuts (auto) Absolute Lymphs (auto) Absolute Monos (auto) Absolute Eos (auto) Absolute Basos (auto) Absolute Nucleated RBC Immature Gran % Immature Gran # RBC/WBC/PLT Morphology Platelet Estimate PT 14.8 SEC SEC (12.0-15.0) INR 1.14 (0.83-1.16) APTT 25.7 SEC SEC (23.0-38.0) VBG Lactic Acid 1.8 mmol/L mmol/L (0.7-2.1) POC Sodium 137 mEq/L mEq/L (135-145) Sodium POC Potassium 3.4 mEq/L mEq/L (3.3-5.0) Potassium POC Chloride 103 mEq/L mEq/L (97-110) Chloride Carbon Dioxide Anion Gap POC BUN 22 mg/dL mg/dL (7-23) BUN Creatinine POC Creatinine 2.9 mg/dL H mg/dL (0.7-1.3) Estimated GFR Glucose POC Glucose 108 mg/dL H mg/dL (70-100) Calcium Total Bilirubin Troponin I 04/02/18 04/02/18 10:20 10:20 WBC 7.81 10^3/uL 10^3/uL (3.80-9.50) RBC 4.14 10^6/uL L 10^6/uL (4.40-6.38) Hgb 13.0 g/dL L g/dL (13.7-17.5) POC Hgb Hct 38.0 % L % (40.0-51.0) POC Hct MCV 91.8 fL fL (81.5-99.8) MCH 31.4 pg pg (27.9-34.1) MCHC 34.2 g/dL g/dL (32.4-36.7) RDW 13.2 % % (11.5-15.2) Plt Count 235 10^3/uL 10^3/uL (150-400) MPV 9.5 fL fL (8.7-11.7) Neut % (Auto) 63.3 % % (39.3-74.2) Lymph % (Auto) 9.9 % L % (15.0-45.0) Meigs % (Auto) 20.9 % H % (4.5-13.0) Eos % (Auto) 5.2 % % (0.6-7.6) Baso % (Auto) 0.3 % % (0.3-1.7) Nucleat RBC Rel Count 0.0 % % (0.0-0.2) Absolute Neuts (auto) 4.94 10^3/uL 10^3/uL (1.70-6.50) Absolute Lymphs (auto) 0.77 10^3/uL L 10^3/uL (1.00-3.00) Absolute Monos (auto) 1.63 10^3/uL H 10^3/uL (0.30-0.80) Absolute Eos (auto) 0.41 10^3/uL H 10^3/uL (0.03-0.40) Absolute Basos (auto) 0.02 10^3/uL 10^3/uL (0.02-0.10) Absolute Nucleated RBC 0.00 10^3/uL 10^3/uL (0-0.01) Immature Gran % 0.4 % % (0.0-1.1) Immature Gran # 0.03 10^3/uL 10^3/uL (0.00-0.10) RBC/WBC/PLT Morphology TNP Platelet Estimate TNP PT INR APTT VBG Lactic Acid POC Sodium Sodium 137 mEq/L mEq/L (135-145) POC Potassium Potassium 3.6 mEq/L mEq/L (3.3-5.0) POC Chloride Chloride 103 mEq/L mEq/L (97-110) Carbon Dioxide 16 mEq/l L mEq/l (22-31) Anion Gap 18 mEq/L H mEq/L (8-16) POC BUN BUN 18 mg/dL mg/dL (7-23) Creatinine 2.6 mg/dL H mg/dL (0.7-1.3) POC Creatinine Estimated GFR 25 Glucose 114 mg/dL H mg/dL (70-100) POC Glucose Calcium 8.8 mg/dL mg/dL (8.5-10.4) Total Bilirubin 0.6 mg/dL mg/dL (0.1-1.4) Troponin I < 0.012 ng/mL ng/mL (0.000-0.034) Medications Given: Discontinued Medications Sodium Chloride (Ns) 500 mls @ 1,000 mls/hr IV EDNOW ONE PRN Reason: Protocol Stop: 04/02/18 10:47 Last Admin: 04/02/18 10:18 Dose: 500 mls Sodium Chloride (Ns) 1,000 mls @ 0 mls/hr IV ONCE ONE PRN Reason: Wide Open Stop: 04/02/18 11:22 Last Admin: 04/02/18 11:25 Dose: 1,000 mls Point of Care Test Results: 04/02/18 10:28 POC Sodium 137 POC Potassium 3.4 POC Chloride 103 POC BUN 22 POC Creatinine 2.9 H POC Glucose 108 H Departure <Manuel Dial - Last Filed: 04/02/18 10:42> <Kendra Camargo - Last Filed: 04/02/18 13:23> - Departure Disposition: [facility] Inpatient Acute Clinical Impression: Acute kidney disease, Transient hypotension Condition: Fair
[2018-04-02 10:31] LABS: PLATELET COUNT 235 10^3/uL (150-400)
[2018-04-02] MEDS ORDERED: NS 1,000 ML IV ONE (11:21)
[2018-04-02 11:35] LABS: INR 1.14 (0.83-1.16); PROTIME(PATIENT) 14.8 SEC (12.0-15.0)
--- NOTE | 2018-04-02 12:39 | PDCONSULT ---
[employer] Note: Renal Consult Note CC: Chest pain, low back pain HPI: The patient is a 62 y/o M with a known h/o recurrent diverticulitis who presented to the ED for chest pain and back pain stating "my kidneys hurt." Was diagnosed again with diverticulitis in late February and started on Augmentin about 3 weeks ago. Has been having loose stools upward of 10 daily. Vomiting x 1. No changes in urination, hematuria, or other symptoms noted. Denies fever, cough, or other infectious problems. No h/o C.diff. Not hospitalized since multiple hip replacements in 2013. Previously took a lot of NSAIDs however stopped awhile ago. No h/o renal issues, stones, etc. Still taking his diuretic recently despite the diarrhea. Currently feeling ok and wants to drink water. PMH: HTN, HL, diverticulitis PSH: SHAYY x 2 Social Hx: Non-smoker, drinks beer on the weekends, no drug use Family Hx: No family h/o renal disease. Meds: Reviewed. Allergies: Oxycodone, doxycycline ROS: Negative except as per HPI. Objective: Temp Pulse Resp BP Pulse Ox 36.4 C 74 20 84/57 L 99 04/02/18 12:18 04/02/18 12:18 04/02/18 12:18 04/02/18 12:18 04/02/18 12:18 O2 (L/minute) 2 Physical Exam: GEN: A+Ox3, obese HEENT: MMM, no trauma Neck: No thyromegaly, supple CV: RRR, no murmurs or rubs RESP: CTA b/l Abdomen: Mildly distended, +BS, mildly tender epigastric area with no guarding or rebound EXT: No edema Neuro: Non-focal, cooperative Labs: WBC 7.81 10^3/uL (3.80-9.50) 04/02/18 10:20 RBC 4.14 10^6/uL (4.40-6.38) L 04/02/18 10:20 Hgb 13.0 g/dL (13.7-17.5) L 04/02/18 10:20 POC Hgb 13.6 gm/dL (13.7-17.5) L 04/02/18 10:28 Hct 38.0 % (40.0-51.0) L 04/02/18 10:20 POC Hct 40 % (40-51) 04/02/18 10:28 MCV 91.8 fL (81.5-99.8) 04/02/18 10:20 MCH 31.4 pg (27.9-34.1) 04/02/18 10:20 MCHC 34.2 g/dL (32.4-36.7) 04/02/18 10:20 RDW 13.2 % (11.5-15.2) 04/02/18 10:20 Plt Count 235 10^3/uL (150-400) 04/02/18 10:20 MPV 9.5 fL (8.7-11.7) 04/02/18 10:20 Neut % (Auto) 63.3 % (39.3-74.2) 04/02/18 10:20 Lymph % (Auto) 9.9 % (15.0-45.0) L 04/02/18 10:20 [place] % (Auto) 20.9 % (4.5-13.0) H 04/02/18 10:20 Eos % (Auto) 5.2 % (0.6-7.6) 04/02/18 10:20 Baso % (Auto) 0.3 % (0.3-1.7) 04/02/18 10:20 Nucleat RBC Rel Count 0.0 % (0.0-0.2) 04/02/18 10:20 Absolute Neuts (auto) 4.94 10^3/uL (1.70-6.50) 04/02/18 10:20 Absolute Lymphs (auto) 0.77 10^3/uL (1.00-3.00) L 04/02/18 10:20 Absolute Monos (auto) 1.63 10^3/uL (0.30-0.80) H 04/02/18 10:20 Absolute Eos (auto) 0.41 10^3/uL (0.03-0.40) H 04/02/18 10:20 Absolute Basos (auto) 0.02 10^3/uL (0.02-0.10) 04/02/18 10:20 Absolute Nucleated RBC 0.00 10^3/uL (0-0.01) 04/02/18 10:20 Immature Gran % 0.4 % (0.0-1.1) 04/02/18 10:20 Immature Gran # 0.03 10^3/uL (0.00-0.10) 04/02/18 10:20 RBC/WBC/PLT Morphology TNP 04/02/18 10:20 Platelet Estimate TNP 04/02/18 10:20 PT 14.8 SEC (12.0-15.0) 04/02/18 11:15 INR 1.14 (0.83-1.16) 04/02/18 11:15 APTT 25.7 SEC (23.0-38.0) 04/02/18 11:15 VBG Lactic Acid 1.8 mmol/L (0.7-2.1) 04/02/18 10:40 POC Sodium 137 mEq/L (135-145) 04/02/18 10:28 Sodium 137 mEq/L (135-145) 04/02/18 10:20 POC Potassium 3.4 mEq/L (3.3-5.0) 04/02/18 10:28 Potassium 3.6 mEq/L (3.3-5.0) 04/02/18 10:20 POC Chloride 103 mEq/L (97-110) 04/02/18 10:28 Chloride 103 mEq/L (97-110) 04/02/18 10:20 Carbon Dioxide 16 mEq/l (22-31) L 04/02/18 10:20 Anion Gap 18 mEq/L (8-16) H 04/02/18 10:20 POC BUN 22 mg/dL (7-23) 04/02/18 10:28 BUN 18 mg/dL (7-23) 04/02/18 10:20 Creatinine 2.6 mg/dL (0.7-1.3) H 04/02/18 10:20 POC Creatinine 2.9 mg/dL (0.7-1.3) H 04/02/18 10:28 Estimated GFR 25 04/02/18 10:20 Glucose 114 mg/dL (70-100) H 04/02/18 10:20 POC Glucose 108 mg/dL (70-100) H 04/02/18 10:28 Calcium 8.8 mg/dL (8.5-10.4) 04/02/18 10:20 Total Bilirubin 0.6 mg/dL (0.1-1.4) 04/02/18 10:20 Troponin I < 0.012 ng/mL (0.000-0.034) 04/02/18 10:20 Imaging: CT results reviewed. A/P: The patient is a 62 y/o M with a known h/o HTN, diverticulitis, and arthritis who presents with abdominal cramping, back pain, and some chest pain and is found to have an HERBERTH. He does not appear to have ACS and doubtful that back pain is related to his HERBERTH. Etiology most likely pre-renal azotemia or ATN vs AIN 2/2 to recent abx and NSAID use. HERBERTH -check UA, urine sodium, urine culture -CT reviewed, will hold on renal US for now -check protein:Cr spot -avoid nephrotoxins (would stop Diclofenac substrate he is taking for arthritis) -continue gently hydration and hold ARB/HCTZ (Hyzaar) for now Hypotension -BP in room on manual cuff inaccurate -fluids as above -keep MAP>65 -getting work-up per primary team Acidosis -most likely related to renal failure, however may have lost bicarb through stool -would send C.diff -will add bicarb to d5 (3 amps) on next bag of fluids Consult appreciated, please contact if further questions #[phone].
[2018-04-02] MEDS ORDERED: ACETAMINOPHEN 325 MG TAB PO PRN (13:11)
[2018-04-02] MEDS ORDERED: ONDANSETRON DISINTEGRATING 4 MG TAB PO PRN (13:11)
[2018-04-02] MEDS ORDERED: ONDANSETRON 4 MG/2 ML VIAL IVP PRN (13:11)
[2018-04-02] MEDS ORDERED: NS 1,000 ML IV SCH (13:15)
--- NOTE | 2018-04-02 14:19 | GHP ---
[f rep st] HISTORY AND PHYSICAL DATE OF ADMISSION: 04/02/2018 CHIEF COMPLAINT: Dizziness, lightheadedness. HPI: The patient is a 62-year-old man who comes in with several days of lightheadedness and diarrhea and presents with acute kidney injury. His symptoms started 3-1/2 weeks ago when he started having some left lower quadrant abdominal pain. He had 3 episodes of bloody diarrhea, developed worsening l eft lower quadrant abdominal pain, so went to urgent care, at which time they did an abdominal CT sca n which showed no definite diverticulitis, although some diverticulosis and mild thickening of the wa ll of the descending and sigmoid colon, as well as the rectosigmoid colon. He was treated for presum ed diverticulitis with 10 days of Augmentin. Of note, he did not have an elevated white count that w as mildly anemic. He finished the Augmentin and said during that time his stools hardened up and he was feeling much better. His abdominal pain resolved. However, as soon as he finished the 10 days, he started developing more loose stools, abdominal discomfort, nausea. He had another small episode of bloody diarrhea and went back to his primary care physician after 2 days of this. She got a metab olic panel, CBC, which again showed no elevated white count, slightly elevated creatinine of 1.2, and a GI panel which showed no organisms. She switched him over to Cipro and Flagyl, again for presumed diverticulitis, a week ago Monday. He said, throughout the week, he continued to take all of his me dications including his blood pressure medications, his nonsteroidal anti-inflammatory for his arthri tis, as well as the antibiotics. By Monday, he was feeling poorly. He had been getting more dizzine ss, lightheadedness, anorexia throughout the week and, on Monday, called his physician who recommende d he stop his antibiotics. Once he stopped the antibiotics, he started to get more abdominal pain, s o resumed them on Monday and Monday, and today continued to feel so poorly that he came into the em ergency department where he was found to be in acute renal failure. On arrival, his blood pressure w as low at 78/55, with a heart rate of 104. Creatinine was elevated at 2.6 with normal electrolytes. REVIEW OF SYSTEMS: A 10-point review of systems was done with pertinent positives present in HPI. G ENERAL: He did has some mild weight loss throughout the events. HEENT: Negative. CARDIAC: Negati ve. PULMONARY: Negative. Abdomen: See HPI. Additionally, he had some nausea and has had 10+ soft , green bowel movements daily for the past week. : Normal, except for slightly decreased urine ou tput. MUSCULOSKELETAL: Bilateral shoulder pain for which she takes etodolac daily. NEUROLOGIC: Ne gative. SKIN: Negative. PSYCH: Negative. PAST MEDICAL HISTORY: 1. Hypertension, on Hyzaar and metoprolol. 2. Osteoarthritis. 3. Dyslipidemia. 4. Coronary artery disease, history of 40% LAD lesion noted on angiogram in 2005. SOCIAL HISTORY: He is . He has 2 children, 1 grandchild. He drinks alcohol Monday through unday, but can put down 12-24 beers over that 3-day period. During the week, he does not drink. He does not smoke tobacco. 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 FAMILY HISTORY: Significant for BPH, diabetes and prostate cancer. ALLERGIES: Include Ancef, Bactrim, cefazolin, doxycycline, Keflex, and oxycodone. CURRENT MEDICATIONS: Simvastatin, metoprolol, Hyzaar, etodolac 600 mg twice daily, and aspirin 81 mg daily. He has been on Flagyl and Cipro over the last week. PHYSICAL EXAM: VITAL SIGNS: Most recent blood pressure is 90/60 with a heart rate of 89. He is 99% on room air. Afebrile. GENERAL: He is a healthy-appearing 62-year-old man. He is alert and orien jessica. Speech is clear and fluent. HEENT: Pupils equal. Extraocular movements intact. Mucous membr anes moist. Oropharynx clear. NECK: Supple. HEART: Regular rate and rhythm without murmur, larson p, or rub. LUNGS: Clear bilaterally. No wheeze or rhonchi. ABDOMEN: Soft. Has some mild tendern ess in the left lower, right lower quadrants, but no rebound or guarding. EXTREMITIES: No clubbing, cyanosis, or edema. MUSCULOSKELETAL: No joint deformities or effusions. SKIN: Intact. No rash. NEUROLOGIC: He is alert and oriented. Speech is fluent. He moves all 4 extremities. PSYCH: He h as a normal affect and normal mood. LABORATORY DATA: CBC shows a white count of 7.81 with 20% monocytes. Hemoglobin is 13 with a platel et count of 235. Coags are normal. Lactic acid is negative. Electrolytes show a potassium 3.4, CO2 of 16, BUN 18, the creatinine at 2.6. DIAGNOSTICS: Abdominal and pelvic CT scan done shows small hiatal hernia, stable cysts in the anteri or midpole of the left kidney. No obstructive uropathy. Minimal sigmoid colon diverticulosis withou t diverticulitis, status post right hip arthroplasty. Chest CT: Extensive right and left-sided ines nary artery atherosclerotic calcifications. No cardiomegaly. Bilateral areas of parenchymal subpleu ral fibrosis. ASSESSMENT AND PLAN: A 62-year-old man presents with 3 weeks of colitis and diarrhea. He has had 2 courses of antibiotics and is admitted today with hypotension and renal failure. 1. Colitis, unclear etiology. There has been no significant evidence for diverticulitis on either o ne of his CT scans, and he has not had an elevated white count. He did have a GI pathogen panel, whi ch was negative, a week ago but will repeat that today. I did discuss the case with Dr. Turner, who feels that, again, it could be a possible infectious colitis and would recommend a GI panel, as well as symptomatic care for now. I will not continue antibiotics at this time until I have an absolute p athogen noted and will monitor his symptoms. 2. Acute renal failure. This is likely multifactorial due to his ARB, hypotension, as well as nonst eroidal anti-inflammatory use. Hopefully, this is reversible. Will hydrate him aggressively while que arauz is here in the hospital. Hold his blood pressure medications, as well as his etodolac. He had a C T scan which showed no obstruction. Will check urine studies. Nephrology was consulted from the [facility] department and will see him in consultation. 3. Hypertension. Patient currently hypotensive. Will hold his Hyzaar and metoprolol until his bloo d pressure stabilizes. 4. Osteoarthritis, currently on nonsteroidal anti-inflammatory for the last 6 months. Will hold it, continue to hydrate him, and follow him clinically. Treat with Tylenol as needed. 5. Dyslipidemia, currently on statin. Will hold it short term until he is stable and resume it upon discharge. 6. Coronary artery disease. Patient asymptomatic with a history of nonobstructive disease by eulalia pizarro over 10 years ago. Will monitor his symptoms and will have him follow up with his primary care jenn ny for this as an outpatient. 7. Alcohol use. The patient does drink heavily on the weekends but has never had withdrawal symptom s during the week when he does not drink. Will check LFTs. 8. Anemia, which appears to be chronic. Unclear etiology. He has had a negative colonoscopy in the recent past. Will check iron and vitamin B12 and folate levels while he is here in the hospital. 9. Deep vein thrombosis prophylaxis. Patient low risk. Will encourage ambulation and SCDs for now, given his recent bloody bowel movement and anemia. /[id number]/MODL
[2018-04-02] MEDS: SODIUM BICARBONATE 150 MEQ in D5W 1,000 ML IV SCH (14:35)
--- NOTE | 2018-04-02 16:00 | SOAPPROG ---
SOAP Progress Note Assessment/Plan: Assessment:Plan: see full dictated consult 62 y/o male with few week hx of GI sx's with mild changes on CT scans interestingly he has a persistent monocytosis from 2017 check stool PCR if negative then colonoscopy if colonoscopy negative consider hematology consult for his monocytosis Antonio Turner MD [phone] 04/02/18 15:57 Objective: Vital Signs Temp Pulse Resp BP Pulse Ox 36.4 C 89 20 90/60 L 99 04/02/18 12:41 04/02/18 12:41 04/02/18 12:41 04/02/18 12:41 04/02/18 12:41 04/01/18 04/02/18 04/03/18 05:59 05:59 05:59 Intake Total 1999 Balance 1999 PT 14.8 SEC (12.0-15.0) 04/02/18 11:15 INR 1.14 (0.83-1.16) 04/02/18 11:15 ICD10 Worksheet Patient Problems: Problems Problem Status Onset Transient hypotension Acute Eye injury Acute Infection of prosthetic total hip joint Acute
--- NOTE | 2018-04-02 16:40 | GCON ---
[f rep st] CONSULTATION DATE OF CONSULTATION: 04/02/2018 REQUESTING PHYSICIAN: Rizwana Hdez MD. INDICATION FOR CONSULTATION: Diarrhea, abdominal pain, abnormal imaging studies. HISTORY OF PRESENT ILLNESS: Mr. Sr is a pleasant 62-year-old male, who has past medical history si gnificant for hypertension, osteoarthritis, dyslipidemia, and a 40% LAD lesion noted on an angiogram in 2005. He had a previous colonoscopy with my partner, Dr. Calvin in 2016, which showed mild left- sided diverticulosis, otherwise normal. The patient was in his usual state of health until a few wee ks ago when he developed left lower quadrant abdominal discomfort and 3 episodes of bloody diarrhea. He presented to Urgent Care and he had a CAT scan performed which showed possible mild wall thickeni ng of the descending colon in the sigmoid and on my review with the different radiology today, possib le cecal thickening as well. There was no obvious evidence of diverticulitis, but the patient was tr eated with 10 days of Augmentin. He stated that he felt better while he was on the antibiotics. His stools became more solid and overall he felt better. However, upon stopping the antibiotics, his sy mptoms recurred fairly quickly. He presented to his primary care physician, who obtained a GI panel that was negative and she changed antibiotics over to Cipro and Flagyl. That was 1 week ago. During that week, he started to have some dizziness, lightheadedness, and he thought it might be related to antibiotics, so he called his PCP who recommended that he stop them. Within a day or 2 of stopping antibiotics he had more abdominal discomfort, so he resumed them on this past weekend. Of note, he c ontinued to take all his other medications including his nonsteroidal medications, even though he was feeling poorly and had decreased p.o. intake. His symptoms progressed where he felt even worse this morning and presented to the emergency room where he was noted to have acute renal failure, likely w ith pre renal azotemia. He is now admitted for the above, and I am called to help evaluate in that r egard. PAST MEDICAL HISTORY: Hypertension, osteoarthritis, dyslipidemia, coronary artery disease noted on a ngiogram in 2005 with a 40% LAD lesion. PAST SURGICAL HISTORY: Includes 3 right shoulder surgeries, 7 right hip surgeries including 5 hip re placements. SOCIAL HISTORY: He does not smoke tobacco. He drinks 4-8 beers each day on the weekend. He has nev er had any withdrawal symptoms. FAMILY HISTORY: Significant for BPH, diabetes, and pancreatic cancer in his father in his mid to lat e 60s. MEDICATIONS: At home include simvastatin, metoprolol, etodolac, aspirin and Hyzaar. In hospital, he is written for Tylenol p.r.n., Zofran p.r.n., and sodium bicarb. ALLERGIES: Ancef, Bactrim, doxycycline, Keflex, and oxycodone. Oxycodone more is more of an intoler ance. REVIEW OF SYSTEMS: A complete review of systems was performed and negative other than noted in the H PI. PHYSICAL EXAM: GENERAL: Well-developed, well-nourished male, sitting in his bed, in no acute distre ss. VITAL SIGNS: Blood pressure 90/60, pulse is 89, respirations are 20. He is 99% on room air, te mperature 36.4. EYES: Anicteric. ABDIEL, EOMI. MOUTH: No lesions. Moist membranes. NECK: Supple . Full range of motion. No JVD. BACK: No spine tenderness. No CVA tenderness. LUNGS: Clear. C ARDIAC: S1, S2. Regular rate and rhythm. I do not appreciate any rubs, gallops, or murmurs. ABDOM EN: Bowel sounds are normal in pitch and frequency. Abdomen is soft. He has both mild right lower quadrant and left lower quadrant tenderness. There is no rebound or guarding. No hepatosplenomegaly . EXTREMITIES: No cyanosis, clubbing, or edema. NEUROLOGIC: Cranial nerves intact. SKIN: No izabela hes. No stigmata of advanced liver disease. NEUROLOGIC: Alert, oriented x3. Cranial nerves intact . Nonfocal. LABORATORY DATA: From today, sodium 137, potassium 3.4, chloride 103, bicarb 16, BUN 18, creatinine 2.6. Iron 47, TIBC 287, iron sat 16, ferritin 154, bilirubin total 0.6, AST mildly elevated=72, ALT normal=57, alkaline phosphatase 65, albumin 3.4, total protein 6.2, vitamin B12 645. Troponin less t varghese 0.012. WBC 7.18, hemoglobin 13.80, hematocrit 38.0, platelet count 235, pro-time 14.8, INR 1.14, PTT 25.7. UA was negative with 1+ leukocyte esterase. Abdominal pelvis CT scan performed today wit h no oral or IV contrast showed a small hiatal hernia. Stable hyperdense cyst in the anterior mid po le of the left kidney dating back to 2010. Minimal sigmoid colon diverticulosis. No evidence of div erticulitis. Small fat containing periumbilical hernia, status post right hip arthroplasty. In reece tion to that, upon my review with the different radiologist, there was some loss of haustra in the de scending colon and sigmoid colon and there might be some mild thickening of the cecum, which was also noted on the CT scan on March 11. The CT scan from March 11, 2018 was with IV but no oral contrast and they thought mild thickening of the wall of the descending and sigmoid colon as well as the recto sigmoid area. And again upon my review with the different radiologist, he felt that there was some i nflammation in the cecum as well. Laboratory data from October 22, 2014. His monocyte percentage is 6.7, which is normal. The next la boratory data we have in the computer is April 20, 2017, with monocytes 16.6%. March 26, 2018, his monocy te 25% and April 02 his monocytes are 21%. ASSESSMENT: 1. Diarrhea. 2. Possible colitis. 3. Acute renal failure. 4. Hypertension. 5. Osteoarthritis. 6. Dyslipidemia. 7. Coronary artery disease. 8. Increased alcohol use on the weekend. 9. Anemia. RECOMMENDATIONS: 1. Repeat stool PCR. If negative, would consider colonoscopy with a split prep to evaluate both the right and left colon in the areas of possible inflammation. 2. If there is no significant findings and his monocytosis continues, consider hematologic evaluatio n as his monocytosis does date back over a year. 3. Treatment of his kidney issues as per Renal and Hospitalist. 4. Treatment of his other issues as per Hospitalist. Interestingly, Terry has had monocytosis since 2017. Monocytosis can be associated with inflammatory bowel disease but it can also be associated with different hematologic issues and malignancies. If the PCR is positive, we will treat as appropriate. I suspect PCR will be negative and we will need t o perform a colonoscopy. If the colonoscopy shows changes consistent with inflammatory bowel disease , then monocytosis may be related to that, even though the patient does not give us a significant gas trointestinal history prior to 4 weeks ago. Thank you for involving me in this patient's healthcare. Do not hesitate to call me if you have any further questions. /[id number]/MODL
--- NOTE | 2018-04-02 17:14 | PDMN ---
Medical Necessity Medical necessity: MCG M-05 abd pain without focal infection A-1 day- bloody diarrhea with worsening LLQ pain, poss colitis with anemia, arf, hypotension, pt with abx X2 cysles, ongoing abd pain. req further monitoring and eval. anticipate > 2 midnights - GI consult pend
[2018-04-02] MEDS: PEG 3350/NA SULF,BICARB,CL/KCL (GAVILYTE-G) 4000 ML BTL PO SCH (19:19)
[2018-04-03] MEDS: SODIUM BICARBONATE 150 MEQ in D5W 1,000 ML IV SCH (00:46)
[2018-04-03 05:16] LABS: PLATELET COUNT 144 10^3/uL (150-400)
[2018-04-03] MEDS: PEG 3350/NA SULF,BICARB,CL/KCL (GAVILYTE-G) 4000 ML BTL PO SCH ×2 (08:19→12:11)
--- NOTE | 2018-04-03 12:03 | HOSPPROG ---
Hospitalist Progress Note Assessment/Plan: 62-year-old man admitted with several weeks of abdominal pain and diarrhea. Treated for presumed diverticulitis although follow-up CT scan did not show evidence of diverticulitis. GI panel set been negative. # abdominal pain and diarrhea, possible colitis versus IBD. Discussed with GI , since GI panel was negative he will proceed with colonoscopy * Continue to hold antibiotics * Colonoscopy # acute renal failure likely secondary to dehydration, hypotension and medications. Some improvement with hydration * Appreciate renal * Continue to monitor # anemia with normal iron and vitamin B12 levels, unclear etiology. If colonoscopy does not show cause of bleeding then would recommend outpatient follow-up # hypotension, unclear etiology patient has been off of his medications since admission. Continue to monitor, heart size normal on CT scan * Hold antihypertensives * Monitor blood pressure, need to do manual check as automatic pressures are abnormally high * If blood pressures do not improve with hydration could consider echocardiogram Subjective: Doing better, minimal abdominal pain today. Objective: Vital Signs Temp Pulse Resp BP Pulse Ox 36.4 C 83 14 110/66 93 04/03/18 11:26 04/03/18 11:26 04/03/18 11:26 04/03/18 11:26 04/03/18 11:26 Microbiology 04/02/18 15:10 Gastrointestinal Tract Panel (PCR) - Final Stool No Organism Detected Laboratory Results 04/03/18 03:42 04/03/18 03:42 04/02/18 04/03/18 04/04/18 05:59 05:59 05:59 Intake Total 8050 500 Output Total 3800 250 Balance 4250 250 PT 14.8 SEC (12.0-15.0) 04/02/18 11:15 INR 1.14 (0.83-1.16) 04/02/18 11:15 - Physical Exam Constitutional: uncomfortable Eyes: PERRL Ears, Nose, Mouth, Throat: moist mucous membranes, hearing normal Cardiovascular: regular rate and rhythym Respiratory: no respiratory distress, no rales or rhonchi Gastrointestinal: normoactive bowel sounds, No tenderness Skin: warm, normal color Neurologic: AAOx3 Psychiatric: interacting appropriately, not anxious ICD10 Worksheet Patient Problems: Problems Problem Status Onset Infection of prosthetic total hip joint Acute Eye injury Acute Transient hypotension Acute
--- NOTE | 2018-04-03 13:18 | SOAPPROG ---
SOAP Progress Note Assessment/Plan: A/P: The patient is a 62 y/o M with a known h/o HTN, diverticulitis, and arthritis who presents with abdominal cramping, back pain, and some chest pain and is found to have an HERBERTH. He does not appear to have ACS and doubtful that back pain is related to his HERBERTH. Etiology most likely pre-renal azotemia, improving with volume. HERBERTH -UA bland, proteinuria <100mg -CT reviewed, will hold on renal US for now -Cr down to 1.7 from 2.6, no h/o renal disease -avoid nephrotoxins (would stop Diclofenac substrate he is taking for arthritis) -continue to hold Hyzaar Hypotension -BP in room on manual cuff inaccurate -will stop fluids, may bolus with NS if needed -keep MAP>65 -most likely 2/2 to diarrhea and not eating, may consider AM cortisol Acidosis -most likely related to renal failure, however may have lost bicarb through stool -GI consult and colonoscopy today -bicarb up to 26 with fluids, will d/c Consult appreciated and will sign off, please contact if further questions #[phone]. 04/03/18 13:15 Subjective: Patient feeling well today. Did bowel prep all night. Still NPO. Objective: Vital Signs Temp Pulse Resp BP Pulse Ox 36.4 C 83 14 110/66 93 04/03/18 11:26 04/03/18 11:26 04/03/18 11:26 04/03/18 11:26 04/03/18 11:26 Microbiology 04/02/18 15:10 Gastrointestinal Tract Panel (PCR) - Final Stool No Organism Detected Laboratory Results 04/03/18 03:42 04/03/18 03:42 04/02/18 04/03/18 04/04/18 05:59 05:59 05:59 Intake Total 8050 500 Output Total 3800 250 Balance 4250 250 PT 14.8 SEC (12.0-15.0) 04/02/18 11:15 INR 1.14 (0.83-1.16) 04/02/18 11:15 Physical Exam - Physical Exam General Appearance: WD/WN, alert, no apparent distress EENT: PERRL/EOMI Neck: non-tender, supple Respiratory: lungs clear, normal breath sounds Cardiac/Chest: normal peripheral pulses, regular rate, rhythm Abdomen: normal bowel sounds, non-tender, soft Skin: normal color, warm/dry Neuro/Psych: no motor/sensory deficits, alert, oriented x 3 ICD10 Worksheet Patient Problems: Problems Problem Status Onset Transient hypotension Acute Eye injury Acute Infection of prosthetic total hip joint Acute
--- NOTE | 2018-04-03 13:48 | PDPROPOC ---
Sedation Plan of Care Sedation Plan of Care: mental status noted, patient educated of risks, benefits , alternatives, patient can tolerate sedation ASA Classification: ASA 2 Planned drugs: fentanyl, midazolam Mallampati Score: Class 2 Mallampati Reference Image: Patient passed 3-3-2 rule?: Yes
[2018-04-03] MEDS ORDERED: MIDAZOLAM 2 MG/2 ML VIAL ONE (13:49)
[2018-04-03] MEDS ORDERED: fentaNYL 100 MCG/2 ML INJ ONE (13:50)
--- NOTE | 2018-04-03 14:37 | GIREPORT ---
[facility] Surgical Services - Endoscopy Department Patient Name: Terry Sr Procedure Date: 04/03/2018 1:57 PM Patient Type: Inpatient Attending MD/ ER Physician: Raheem Hurtado Procedure: Colonoscopy Indications: Clinically significant diarrhea of unexplained origin, Abnormal CT of t he GI tract Providers: Ji Turner MD Medicines: Fentanyl 100 micrograms IV, Midazolam 5 mg IV Complications: No immediate complications. Estimated blood loss: Minimal. Description of Procedure: After obtaining informed consent, the scope was passed under direct vis ion. Throughout the procedure, the patient's blood pressure, pulse, and oxyg en saturations were monitored continuously. The Colonoscope with irrigatio n channel was introduced through the anus and advanced to the cecum, identified by IC valve and palpation. The colonoscopy was performed wit hout difficulty. The patient tolerated the procedure well. The quality of th e bowel preparation was good. Findings: The digital rectal exam was normal. A scattered area of moderately congested, erythematous, eroded, inflame d and ulcerated mucosa was found in the proximal ascending colon, in the mid ascending colon and in the cecum. Biopsies were taken with a cold force ps for histology. Estimated blood loss was minimal. The transverse colon appeared normal. Biopsies were taken with a cold forceps for histology. Estimated blood loss was minimal. A scattered area of mildly congested, erythematous and petechial mucosa was found in the sigmoid colon and in the descending colon. Biopsies were t aken with a cold forceps for histology. Estimated blood loss was minimal. Many small-mouthed diverticula were found in the sigmoid colon and descending colon. The exam was otherwise without abnormality. Estimated Blood Loss: Estimated blood loss was minimal. Post Op Diagnosis: - Congested, erythematous, eroded, inflamed and ulcerated mucosa in the proximal ascending colon, in the mid ascending colon and in the cecum. Biopsied. Query Crohn's disease? - The transverse colon is normal. Biopsied. - Congested, erythematous and petechial mucosa in the sigmoid colon and in the descending colon. Biopsied. - Diverticulosis in the sigmoid colon and in the descending colon. - The examination was otherwise normal. Recommendation: - Await pathology results. - My office will call with the pathology result with 5-7 days. If you h ave not heard from my office by 12-14, do not assume the pathology is adela l, please call [phone] to get the pathology results. - Use Uceris (budesonide) 9 mg PO daily. - Once renal function returns to normal can start a mesalamine medicati on such as Apriso 0.375 g 4 caps PO QAM. - Mesalamine medications include Apriso, Lialda, Asacol, Asacol HD, Balsalazide, Pentasa among others - If pathology is not c/w IBD, then hematology consult for monocytosis - Return patient to hospital [facility] for ongoing care. - Resume regular diet. - Thank you for allowing me to help in your patient's care. Do not hesi lala to call with any questions. Attending Participation: I personally performed the entire procedure. Johnny Workman M.D Ji Turner MD 04/03/2018 2:36:49 PM This report has been signed electronicallyMathew MD Johnny Number of Addenda: 0 Note Initiated On: 04/03/2018 1:57 PM Total Procedure Duration Time 0 hours 21 minutes 25 seconds [email or web address]
--- NOTE | 2018-04-03 14:48 | SOAPPROG ---
SOAP Progress Note Assessment/Plan: Assessment:Plan: see full colon report he may have IBD/Crohn's with inflammation in the cecum/ascending colon and some mild changes in the sigmoid this would explain his monocytosis and his diarrhea. His monocytosis developed in 2017 and his previous normal colonoscopy was in 2016 I would start mesalamine but only when his renal function is normal Can use high first pass metabolized steroid = Uceris - I can get some samples form my office if not available at [facility] Could also use Prednisone at low dose until bx back Antonio Turner MD [phone] 04/03/18 14:44 Objective: Vital Signs Temp Pulse Resp BP Pulse Ox 36.6 C 84 16 90/64 L 92 04/03/18 13:43 04/03/18 13:43 04/03/18 14:31 04/03/18 14:31 04/03/18 14:31 Microbiology 04/02/18 15:10 Gastrointestinal Tract Panel (PCR) - Final Stool No Organism Detected Laboratory Results 04/03/18 03:42 04/03/18 03:42 04/02/18 04/03/18 04/04/18 05:59 05:59 05:59 Intake Total 8050 500 Output Total 3800 250 Balance 4250 250 PT 14.8 SEC (12.0-15.0) 04/02/18 11:15 INR 1.14 (0.83-1.16) 04/02/18 11:15 ICD10 Worksheet Patient Problems: Problems Problem Status Onset Transient hypotension Acute Eye injury Acute Infection of prosthetic total hip joint Acute
--- NOTE | 2018-04-03 17:15 | ASMTCMCOM ---
CM Note CM Note Notes: 04/03/2018 Case Management Note Met pt during multi disciplinary rounds this morning. Pt admitted for transient hypotension with acute renal insufficiency. Pt had colonscopy today. There are no case management d/c needs identified. Pt is to [facility] [phone]. Pt was independent with ADL's prior to admission. Case Management d/c poc: independent with follow up as directed. Case Management to follow. Date Signed: 04/03/2018 03:24 PM Electronically Signed By:Amanda Sanchez RN
[2018-04-03] MEDS: UCERIS 9 MG PO SCH (17:23)
[2018-04-04] MEDS: PEG 3350/NA SULF,BICARB,CL/KCL (GAVILYTE-G) 4000 ML BTL PO SCH ×2 (03:58→07:04)
[2018-04-04] MEDS: UCERIS 9 MG PO SCH (08:10)
[2018-04-04 12:15] VITALS: BP 102/56
--- NOTE | 2018-04-04 13:09 | SOAPPROG ---
SOAP Progress Note Assessment/Plan: Assessment:Plan: see full colon report he may have IBD/Crohn's with inflammation in the cecum/ascending colon and some mild changes in the sigmoid this would explain his monocytosis and his diarrhea. His monocytosis developed in 2017 and his previous normal colonoscopy was in 2015 I would start mesalamine but only when his renal function is normal Can use high first pass metabolized steroid = Uceris - I can get some samples form my office if not available at [facility] Could also use Prednisone at low dose until bx back Antonio Turner MD [phone] 04/04/18 13:04 1) Colitis - likely IBD, need to f/u path, feels better with Uceris but too $$$ to fill rx. I rx'd mesalamine 1.2 gram 4 tabs once daily (generic for Lialda). IF not working then may use low dose prednisone 2) renal - Cr back to 1.1 - all prerenal azotemia, can start mesalamine - will ask for Comp panel in one week 3) LFt's mildly elevated, prev nml, suspect acute issue and will f/u lab in one week 4) Monocytosis - will follow with CBC. I am optimist it will improve as the colitis resolves 4) Dispo - home this afternoon, I will make appt for 3 weeks from today in my [place] office Antonio Turner MD Subjective: cc - colitis, prob Crohn's, diarrhea monocytosis he feels well today on Uceris, BM's better but still soft, no abdo pain Objective: Vital Signs Temp Pulse Resp BP Pulse Ox 36.6 C 95 12 102/56 L 94 04/04/18 12:00 04/04/18 12:00 04/04/18 12:00 04/04/18 12:00 04/04/18 12:00 Laboratory Results 04/04/18 09:53 04/04/18 09:53 04/03/18 04/04/18 04/05/18 05:59 05:59 05:59 Intake Total 8050 2200 Output Total 3800 2600 Balance 4250 -400 PT 14.8 SEC (12.0-15.0) 04/02/18 11:15 INR 1.14 (0.83-1.16) 04/02/18 11:15 A+Ox3 CAT S1S2 +BS, soft nt Laboratory Tests 04/02/18 04/02/18 04/02/18 10:20 10:26 17:39 Hgb Hct Creatinine 2.6 H 2.2 H AST 72 H 04/03/18 04/03/18 04/04/18 03:42 03:42 09:53 Hgb 10.1 L 11.2 L Hct 29.6 L 33.0 L Creatinine 1.7 H AST 66 H 04/04/18 09:53 Hgb Hct Creatinine 1.1 AST 77 H ICD10 Worksheet Patient Problems: Problems Problem Status Onset Transient hypotension Acute Eye injury Acute Infection of prosthetic total hip joint Acute
--- NOTE | 2018-04-04 19:52 | PDDCSUM ---
Discharge Summary Discharge Summary: DISCHARGE SUMMARY FOLLOW-UP ITEMS: Repeat labs in 1 week with results to PCP and of [facility] DATE OF ADMISSION: 04/02/2018 DATE OF DISCHARGE: 04/04/2018 DISCHARGE DIAGNOSES: 1. Likely acute inflammatory bowel disease 2. Acute kidney injury 3. Anemia of chronic inflammatory disease with iron deficient component 4. Acute hypotension CONSULTATIONS: Gastroenterology PROCEDURES / IMAGING: Colonoscopy CHIEF COMPLAINT: Acute abdominal discomfort, diarrhea SUBJECTIVE: Patient is feeling well at time discharge, his abdominal symptoms have completely abated PHYSICAL EXAM ON DISCHARGE: Systolic blood pressure 110-120, heart rate 90, afebrile overnight, satting on room air, alert awake oriented x3, abdomen is soft nontender nondistended, bowel sounds are present, lungs are clear to auscultation bilaterally LABS ON DISCHARGE: Hemoglobin 11.2, CRP 10.9, creatinine 1.1, potassium 3.2, AST 77 HOSPITAL COURSE BY PROBLEM: 1. Acute inflammatory bowel disease flare. Suspected diagnosis, status post colonoscopy by GI, symptoms significantly improved with steroid treatment, transitioned to high-dose mesalamine 4.8 g daily after his renal function improved. The patient will be seen in follow-up at [facility] by Dr. Turner, and he will gauge whether the patient's mesalamine is appropriate maintenance therapy. 2. Acute kidney injury. Secondary to hypotension and hypovolemia in the setting of diarrhea, poor oral intake, responded to IV fluids, serum creatinine level down trended from greater than 2 to 1.1 at time discharge. He should have repeat creatinine BUN and lytes in 1 week with results to PCP and [facility]. 3. Acute hypotension. Most likely secondary to hypovolemia and exacerbated by his home medications. We re-initiated his home metoprolol prior to discharge. 4. Anemia of chronic inflammatory disease with iron deficient component. Most likely secondary to underlying inflammatory bowel disease with iron sequestration and deficient component on evaluation of labs. He did not require blood transfusion, but his hemoglobin level should be monitored as an outpatient. DISCHARGE MEDICATIONS: Please see official discharge medication reconciliation sheet in chart , continue home medications with the addition of mesalamine 4.8 g daily. DISCHARGE INSTRUCTIONS: Please follow up with primary care provider in 1 week, have labs performed at that time, then follow up with [facility] in 3 weeks. TIME SPENT: Greater than 30 minutes were spent on direct patient care, as well as discharge planning and preparation.
== END 2018-04-04 15:35 | disposition home or self-care (01) | DRG 392 ==
LOC: OBSVTOIN 11:54 → F2W 12:26
PROVIDERS: ADMIT Internal Medicine; ATTEND Internal Medicine
DX: K52.9 Noninfective gastroenteritis and colitis, unspecified (principal); N17.9 Acute kidney failure, unspecified; D63.8 Anemia in other chronic diseases classified elsewhere; D50.9 Iron deficiency anemia, unspecified; I95.9 Hypotension, unspecified; I10 Essential (primary) hypertension; E78.5 Hyperlipidemia, unspecified; I25.10 Atherosclerotic heart disease of native coronary artery without angina pectoris; M19.90 Unspecified osteoarthritis, unspecified site; Z96.643 Presence of artificial hip joint, bilateral
CPT/HCPCS: 82607-90; 82947-QW; J2250; J3010; Q9967

== ENCOUNTER 2018-12-07 21:32 | Emergency (ER) | payer OTHER ==
--- NOTE | 2018-12-07 21:42 | EDPHY ---
General Time Seen by Provider: 12/07/18 21:42 Narrative: CLINICAL IMPRESSION: Lumbosacral radiculopathy ASSESSMENT/PLAN: Patient is a 63-year-old male with significant history of hypertension, sciatica and Crohn's who presents to the emergency department with right buttock pain with radiation down to his foot. Patient is afebrile, he is very uncomfortable appearing however not toxic-appearing. HSNE intact. No recent procedures. Hip x-ray revealed no malplacement however concern for mild loosening of hardware. CBC revealed no leukocytosis, sed rate was within normal limits, CRP elevated at 35. I feel that elevated CRP is nonspecific in this case as this could be elevated secondary to his Crohn's. Patient had no erythema of the right hip incision, no pain with passive or active range of motion of the hip- I have a low suspicion for septic arthritis at this time. Patient with reproducible pain in his right SI joint with radiculopathy, history of exact same symptoms in the past with exacerbation of sciatica. His symptoms today are most consistent with right lumbosacral radiculopathy. He has had no saddle paresthesias, lower extremity numbness, tingling, major motor weakness, urinary retention or bowel/bladder incontinence. No indication for emergent MRI. There were no clinical findings to suggest vertebral osteomyelitis, acute fracture, cauda equina syndrome, epidural abscess/hematoma , epidural compression syndrome, transverse myelitis, herpes zoster, or additional emergent process. Patient was given single dose of Dilaudid while in the ED with improvement of his pain. He is well established with his PCP and will call to schedule follow-up appointment for repeat examination. Patient was given a prescription for [place] as needed for severe pain. On repeat examination prior to discharge the patient reports significant improvement of his pain. His mobility improved and he was able to ambulate without difficulty and independently. Very conservative return precautions were discussed with the patient- he will return for increased or unmanageable pain, fever, new injury, new midline back pain, numbness, tingling, weakness of legs, loss of bowel or bladder control, saddle paresthesia, urinary retention, loss of bowel or bladder control, difficulty walking or for any other new, worsening or worrisome symptoms. Patient verbalizes understanding and he is in agreement with plan. Case discussed with and patient seen by Dr. Larsen. DIFFERENTIAL DX: Hardware malalignment, septic joint, radiculopathy, fracture, dislocation ED COURSE: 2229: Case discussed with Dr. Larsen CHIEF COMPLAINT: Right hip pain HPI: Patient is a 63-year-old male with a significant history of hypertension, Crohn' s and sciatica who presents to the emergency department with right buttock pain with radiation down to his foot. Patient reports a very similar episode with exacerbation of sciatica this past July. Patient also with a complicated surgical history of 7 hip replacements and history of septic joint. Patient reports approximately 3 days ago he had been walking up and down a ladder, started to experience some discomfort in his right buttock and has subsequently increased with radiation down to his foot. He denies any trauma or injury. He states this does not feel similar to when he has had issues with this hip in the past however it feels exactly like when he had issues with his sciatica. He denies any midline back pain. Patient denies saddle paresthesias, lower extremity numbness, tingling, major motor weakness, urinary retention or bowel/ bladder incontinence. He has had no fever or recent procedures, no history of IV drug use. Denies any chest pain, shortness of breath, abdominal pain or urinary symptoms to include dysuria, hematuria or increased frequency. He has had no testicular pain or swelling. PAST MEDICAL HISTORY: Crohn's, hypertension, sciatica Pertinent Past Surgical History: Right total hip arthroplasty x7 with history of septic joint Social History: Denies smoking or illicit drug use ROS: A full 10 point review of systems was negative except for those mentioned in HPI. PHYSICAL EXAM: General Appearance: Well-developed, very uncomfortable appearing however not toxic-appearing HEENT: External ears are normal. Oropharynx clear is no erythema or exudates, no tonsillar hypertrophy or asymmetry. Dentition without abnormality. Eyes: PERRLA, no acute vision change, nystagmus, swelling, discharge, pain or photosensitivity. Conjunctiva pink, no pallor or injection. Neck: Supple, nontender, no lymphadenopathy, no midline pain, FROM, no meningismus. Respiratory: There are no retractions, lungs are clear to auscultation. Cardiac: Regular rate and rhythm, no murmurs or gallops. Gastrointestinal: Abdomen is soft, nontender, bowel sounds normal, no masses/ hernia, no rigidity, guarding or focal peritoneal findings. Back: No step-off, palpable bony abnormality, edema, erythema or ecchymosis of the cervical, thoracic or lumbar spines. There is no thoracic or lumbar midline pain to palpation. TTP: Right SI joint into buttock Full range of motion of all spines. 5/5 and equal strength of the UEs and LEs bilaterally including shoulder shrug. Pulses: 2+ and equal radial, DP and PT pulses bilaterally. Sensation intact and symmetric to light touch from face, UEs and LEs bilaterally. Negative straight leg bilaterally. NON-traumatic Back Pain Pathway Low/medium concern for Acute Spinal Emergency (ASE) High Sensitivity Neuro Exam (HSNE) Lumbar pain L1: inner thigh sensation- no deficit L2: ADduct thigh (cross legs)- no deficit L3: Extend knee- no deficit L4: Ankle dorsiflexion- no deficit L5: Great toe extension- no deficit S1: Flex knee- no deficit S3-4: bladder/bowel function- no dysfunction Pelvis is stable and nontender. He has no pain with passive or active full range of motion of the hip. Well-healed incision on the right lateral hip, no erythema, induration, warmth or open wounds. Skin: Warm, dry, no rashes, no nodules on palpation. MEDICAL DECISION MAKING: Patient was seen independently. Secondary supervising physician at time of evaluation was Dr. Larsen Diagnosis: Right Lumbosacral radiculopathy. New, requires workup Summary: See Assessment and Plan for summary of ED visit Clinical lab tests: ordered / reviewed. Independent visualization of images, tracing, or specimens: Yes. Decision to obtain medical records or history from someone other than the patient: Yes, Review / Summarize previous medical records: Yes Discussed patient with another provider: Yes, Dr. Larsen Patient Progress: Stable, discharge. - Diagnostics Imaging Results: Imaging Impressions Hip X-Ray 12/07/18 21:52 Impression: Right total hip arthroplasty with evidence of loosening as described. No definite acute, displaced fracture or dislocation is identified. With persistent pain, continued radiographic surveillance is recommended. - Objective Vital Signs: Initial Vital Signs Temperature (C) 36.9 C 12/07/18 21:36 Heart Rate 68 12/07/18 21:36 Respiratory Rate 18 12/07/18 21:36 Blood Pressure 144/97 H 12/07/18 21:36 O2 Sat (%) 95 12/07/18 21:36 O2 Delivery Mode Room Air Allergies/Adverse Reactions: doxycycline Allergy (Mild, Verified 12/07/18 21:35) TURNED RED oxycodone HCl [From OxyContin] Allergy (Mild, Verified 12/07/18 21:35) Rash Home Medications: Medication Instructions Recorded Aspirin [Aspirin 81mg (*)] 81 mg PO DAILY 01/11/13 Metoprolol Succinate Xr [Toprol Xl 50 mg PO DAILY 01/11/13 50 mg (*)] Multivitamins [Multivitamin (*)] 1 each PO DAILY 01/11/13 Glucosamine Sulfate [Glucosamine 500 mg PO DAILY 04/02/18 Sulfate 500 MG (*)] Simvastatin 10 mg PO DAILY 04/02/18 Acetaminophen [Tylenol 325mg (*)] 650 mg PO Q4HRS PRN tab 04/04/18 Mesalamine 4.8 gm PO DAILY #120 tablet. 04/04/18 Hydrocodone/APAP 5/325 [[place] 1 - 2 tab PO Q4H PRN #10 tab 12/07/18 5/325 (*)] Prednisone 12/07/18 Laboratory Results: Laboratory Results 12/07/18 23:04 12/07/18 23:04 12/07/18 12/07/18 23:04 23:04 WBC 6.91 10^3/uL 10^3/uL (3.80-9.50) RBC 4.16 10^6/uL L 10^6/uL (4.40-6.38) Hgb 13.0 g/dL L g/dL (13.7-17.5) Hct 39.0 % L % (40.0-51.0) MCV 93.8 fL fL (81.5-99.8) MCH 31.3 pg pg (27.9-34.1) MCHC 33.3 g/dL g/dL (32.4-36.7) RDW 14.0 % % (11.5-15.2) Plt Count 173 10^3/uL 10^3/uL (150-400) MPV 8.5 fL L fL (8.7-11.7) Neut % (Auto) 78.5 % H % (39.3-74.2) Lymph % (Auto) 9.4 % L % (15.0-45.0) [place] % (Auto) 11.1 % % (4.5-13.0) Eos % (Auto) 0.0 % L % (0.6-7.6) Baso % (Auto) 0.1 % L % (0.3-1.7) Nucleat RBC Rel Count 0.0 % % (0.0-0.2) Absolute Neuts (auto) 5.42 10^3/uL 10^3/uL (1.70-6.50) Absolute Lymphs (auto) 0.65 10^3/uL L 10^3/uL (1.00-3.00) Absolute Monos (auto) 0.77 10^3/uL 10^3/uL (0.30-0.80) Absolute Eos (auto) 0.00 10^3/uL L 10^3/uL (0.03-0.40) Absolute Basos (auto) 0.01 10^3/uL L 10^3/uL (0.02-0.10) Absolute Nucleated RBC 0.00 10^3/uL 10^3/uL (0-0.01) Immature Gran % 0.9 % % (0.0-1.1) Immature Gran # 0.06 10^3/uL 10^3/uL (0.00-0.10) ESR 12 MM/HR MM/HR (0-20) Sodium 135 mEq/L mEq/L (135-145) Potassium 3.9 mEq/L mEq/L (3.5-5.2) Chloride 106 mEq/L mEq/L (97-110) Carbon Dioxide 24 mEq/l mEq/l (22-31) Anion Gap 5 mEq/L L mEq/L (6-14) BUN 9 mg/dL mg/dL (7-23) Creatinine 0.7 mg/dL mg/dL (0.7-1.3) Estimated GFR > 60 Glucose 99 mg/dL mg/dL (70-100) Calcium 9.1 mg/dL mg/dL (8.5-10.4) C-Reactive Protein 35.7 mg/L H mg/L (<10.0) Medications Given: Discontinued Medications Hydrocodone Bitart/Acetaminophen ([place] 5/325mg Prepack#6) 1 btl TAKEHOME EDNOW ONE Stop: 12/07/18 23:47 Last Admin: 12/08/18 00:07 Dose: 1 btl Hydromorphone HCl (Dilaudid) 0.5 mg IVP EDNOW ONE Stop: 12/07/18 22:06 Last Admin: 12/07/18 22:14 Dose: 0.5 mg Departure - Departure Disposition: Home, Routine, Self-Care Clinical Impression: Radiculopathy of leg Condition: Good Instructions: Hydrocodone/Acetaminophen (By mouth), Lumbar Radiculopathy (ED) Additional Instructions: DISCHARGE INSTRUCTIONS FROM YOUR DOCTOR Thank you for visiting our emergency department today. Please keep in mind that discharge from the emergency department does not mean that there is nothing wrong - it simply means that we have not identified an emergency condition that requires further evaluation or treatment in the hospital. You should always plan to follow up with primary care for re-evaluation of your condition in the next 2-3 days. Your hip x-ray showed possible loosening of your hardware, I do not feel that this is contributing to her pain however you do need to follow up with your orthopedic surgeon regarding this. Your white blood cell count was normal, your sed rate was normal however your CRP was elevated. This can be elevated secondary to your Crohn's as well as generalized inflammatory process. There were no findings today to suggest an infected joint however, if you experience increased pain, fever, redness you must return to the emergency department immediately. Please continue all of your regular medications as previously prescribed. You may ice or heat, whichever one makes you feel better. You have been prescribed [place] which is a narcotic. Please do not drive or operate machinery while taking this medication as it may make you drowsy. It may also be habit forming. This medication can also cause constipation, recommend taking 100 mg of Colace twice daily while taking this medication. This medication also contains Tylenol, please do not take other Tylenol containing products with this medication. People present with illnesses and injuries in different ways, and it is always possible that we have missed something. You may also return for re-evaluation if symptoms worsen or if they are not improving or if you develop new/different symptoms. Again, thank you for choosing our emergency department. We hope that you feel better. Referrals: Stefania Mitchell RN, [facility] [Primary Care Provider] - 2-3 days without fail Prescriptions: Hydrocodone/APAP 5/325 [[place] 5/325 (*)] 1 - 2 tab PO Q4H PRN #10 tab PRN Reason: Pain, Moderate
[2018-12-07] MEDS ORDERED: HYDROmorphONE/DILAUDID 2 MG/ML INJ IVP ONE (22:05)
[2018-12-07] MEDS ORDERED: HYDROmorphONE/DILAUDID 1 MG/ML INJ ONE (22:09)
[2018-12-07 23:15] LABS: PLATELET COUNT 173 10^3/uL (150-400)
[2018-12-07] MEDS ORDERED: HYDROCOD/APAP 5/325 PREPACK#6 BTL TAKEHOME ONE (23:46)
[2018-12-07 23:48] VITALS: BP 156/112
== END 2018-12-08 00:11 | disposition home or self-care (01) ==
DX: M54.17 Radiculopathy, lumbosacral region (principal)
CPT/HCPCS: 96374; J1170

== ENCOUNTER 2018-12-08 14:15 | Observation (INO) | payer OTHER ==
--- NOTE | 2018-12-08 15:49 | EDPHY ---
H & P Time Seen by Provider: 12/08/18 15:07 HPI/ROS: CHIEF COMPLAINT: "Sciatic pain" HISTORY OF PRESENT ILLNESS: The patient is a 63-year-old male with a history of hypertension, Crohn's disease and sciatica who presents emergency department with ongoing right"sciatic pain."Patient was in the emergency department last night for similar symptoms. He states that he did feel better while in the emergency department but since returning home he has had difficulty taking his medications. The patient reports that because of his Crohn's disease he has been having discomfort when he takes his medications orally. He has had ongoing diarrhea, but this is typical. He has had no nausea or vomiting. He denies epigastric and mid abdominal discomfort. He continues to have right buttock pain that radiates to his right foot. This is severe. It is worse with movement. He had no recent trauma or fall. He has had numerous surgeries on his right hip but this feels more typical of his sciatic pain. He has had no saddle paresthesias, lower extremity weakness or numbness. He denies incontinence of urine or stool. REVIEW OF SYSTEMS: 10 systems were reveiwed and are negative with the exception of the elements mentioned in the history of present illness. Past Medical/Surgical History: Includes Crohn's disease, hypertension, sciatica Past surgical history: The patient has had 5 right hip replacements with 7 total surgeries of the hip (he had a postoperative infection) Social history: The patient does not smoke. Previously worked at [employer]. Smoking Status: Former smoker Physical Exam: Vitals noted. 134/100. Tachycardia 112. GENERAL: Well-appearing, in no acute distress, alert. HEENT: Eyes normal to inspection, normal pharynx, no signs of dehydration. NECK: Normal, supple. RESPIRATORY: Clear to auscultation bilaterally, no rales, rhonchi or wheezing. CVS: Tachycardia with regular rhythm, no rubs, murmurs, or gallops. ABDOMEN: Soft, mild epigastric tenderness to palpation with no rebound or guarding, nondistended, no organomegaly. No palpable or pulsatile mass BACK: Normal to inspection, no CVA tenderness. Negative leg raise bilaterally. SKIN: Normal color, no rash, warm, dry. No pallor. EXTREMITIES: Right hip appears normal. No erythema or warmth. No tenderness palpation. No pedal edema, no calf tenderness, no Homans sign or cords, no joint swelling. NEURO/PSYCH: Alert and oriented, normal mood and affect, normal motor sensory exam. Constitutional: Initial Vital Signs Temperature (C) 36.4 C 12/08/18 14:28 Heart Rate 112 H 12/08/18 14:28 Respiratory Rate 18 12/08/18 14:28 Blood Pressure 134/100 H 12/08/18 14:28 O2 Sat (%) 95 12/08/18 14:28 O2 Delivery Mode Room Air Allergies/Adverse Reactions: doxycycline Allergy (Mild, Verified 12/08/18 14:31) TURNED RED oxycodone HCl [From OxyContin] Allergy (Mild, Verified 12/08/18 14:31) Rash Home Medications: Medication Instructions Recorded Aspirin [Aspirin 81mg (*)] 81 mg PO DAILY 01/11/13 Metoprolol Succinate Xr [Toprol Xl 50 mg PO DAILY 01/11/13 50 mg (*)] Multivitamins [Multivitamin (*)] 1 each PO DAILY 01/11/13 Glucosamine Sulfate [Glucosamine 500 mg PO DAILY 04/02/18 Sulfate 500 MG (*)] Simvastatin 10 mg PO DAILY 04/02/18 Acetaminophen [Tylenol 325mg (*)] 650 mg PO Q4HRS PRN tab 04/04/18 Mesalamine 4.8 gm PO DAILY #120 tablet. 04/04/18 Hydrocodone/APAP 5/325 [[place] 1 - 2 tab PO Q4H PRN #10 tab 12/07/18 5/325 (*)] Prednisone 12/07/18 Medical Decision Making ED Course/Re-evaluation: In the emergency department I discussed possible etiologies with the patient and . I answered all his questions. Patient was given normal saline 1 L IV for hydration. He was given fentanyl 50 mcg IV and Zofran 4 mg IV for pain and nausea. Laboratory studies and CT were ordered. Patient's CBC was unremarkable. Chemistry panel is normal. Patient's LFTs were notable for mildly elevated total bilirubin 1.7. Unconjugated bilirubin was 1.3. Lipase was normal. CT of the abdomen pelvis: Please refer the dictated report by Dr. Byron Simpson. The patient has noted Crohn's disease. No perforation. No obstruction. The aorta is normal size with no dissection or aneurysm. 17 30: I rechecked the patient. Patient states he still having a fair amount of epigastric discomfort. He is concerned that he cannot tolerate any oral intake. Hence, he is also concerned he cannot take his medications. Patient continues to have significant diarrhea which caused him to get up from the bed. This caused him to have significant sciatic pain. I discussed disposition options with the patient and . At this time the patient will be admitted for further pain control, hydration and care. Differential Diagnosis: My differential includes but is not limited to aortic aneurysm, aortic dissection, sciatica, disc herniation, Crohn's flare, mass, abscess, diverticulitis - Data Points Laboratory Results: Laboratory Results 12/08/18 15:10 12/08/18 15:10 12/08/18 12/08/18 15:10 15:10 WBC 6.98 10^3/uL 10^3/uL (3.80-9.50) RBC 5.19 10^6/uL 10^6/uL (4.40-6.38) Hgb 16.3 g/dL g/dL (13.7-17.5) Hct 48.5 % % (40.0-51.0) MCV 93.4 fL fL (81.5-99.8) MCH 31.4 pg pg (27.9-34.1) MCHC 33.6 g/dL g/dL (32.4-36.7) RDW 14.3 % % (11.5-15.2) Plt Count 214 10^3/uL 10^3/uL (150-400) MPV 8.7 fL fL (8.7-11.7) Neut % (Auto) Not Reported Lymph % (Auto) Not Reported [place] % (Auto) Not Reported Eos % (Auto) Not Reported Baso % (Auto) Not Reported Nucleat RBC Rel Count Not Reported Absolute Neuts (auto) Not Reported Absolute Lymphs (auto) Not Reported Absolute Monos (auto) Not Reported Absolute Eos (auto) Not Reported Absolute Basos (auto) Not Reported Absolute Nucleated RBC Not Reported Immature Gran % Not Reported Seg Neutrophils % 37.4 % % Band Neutrophils % 19.2 % % Lymphocytes % 31.3 % % Monocytes % 12.1 % % Eosinophils % 0.0 % % Basophils % 0.0 % % Metamyelocytes % 0.0 % % Myelocytes % 0.0 % % Promyelocytes % 0.0 % % Blast Cells % 0.0 % % Immature Gran # Not Reported Absolute Seg Neuts 2.61 10^3/uL 10^3/uL (1.70-6.50) Absolute Band Neuts 1.34 10^3/uL H 10^3/uL (0.00-0.70) Absolute Lymphocytes 2.18 10^3/uL 10^3/uL (1.00-3.00) Absolute Monocytes 0.84 10^3/uL H 10^3/uL (0.30-0.80) Absolute Eosinophils 0.00 10^3/uL L 10^3/uL (0.03-0.40) Absolute Basophils 0.00 10^3/uL L 10^3/uL (0.02-0.10) Absolute Metamyelocyte 0.00 10^3/mL 10^3/mL (0.00-0.00) Absolute Myelocytes 0.00 10^3/mL 10^3/mL (0.00-0.00) Absolute Promyelocytes 0.00 10^3/uL 10^3/uL (0.00-0.00) Absolute Plasma Cells 0.00 10^3/uL 10^3/uL (0.00-0.00) Nucleated RBCs 0 /100 WBC /100 WBC (0-0) RBC/WBC/PLT Morphology NORMAL (NORMAL) Absolute Blast Cells 0.00 10^3/uL 10^3/uL (0.00-0.00) Plasma Cells % 0.0 % % Platelet Estimate ADEQUATE (ADEQ) Sodium 135 mEq/L mEq/L (135-145) Potassium 4.0 mEq/L mEq/L (3.5-5.2) Chloride 102 mEq/L mEq/L (97-110) Carbon Dioxide 22 mEq/l mEq/l (22-31) Anion Gap 11 mEq/L mEq/L (6-14) BUN 11 mg/dL mg/dL (7-23) Creatinine 0.9 mg/dL mg/dL (0.7-1.3) Estimated GFR > 60 Glucose 98 mg/dL mg/dL (70-100) Calcium 9.9 mg/dL mg/dL (8.5-10.4) Total Bilirubin 1.7 mg/dL H mg/dL (0.1-1.4) Conjugated Bilirubin 0.4 mg/dL mg/dL (0.0-0.5) Unconjugated Bilirubin 1.3 mg/dL H mg/dL (0.0-1.1) AST 14 IU/L L IU/L (17-59) ALT 18 IU/L L IU/L (21-72) Alkaline Phosphatase 81 IU/L IU/L (38-126) Total Protein 6.8 g/dL g/dL (6.3-8.2) Albumin 4.0 g/dL g/dL (3.5-5.0) Lipase 228 IU/L IU/L (23-300) Medications Given: Discontinued Medications Fentanyl (Sublimaze) 50 mcg IVP EDNOW ONE Stop: 12/08/18 15:57 Last Admin: 12/08/18 16:02 Dose: 50 mcg Famotidine/Sodium Chloride (Pepcid 20 Mg (Premix)) 50 mls @ 200 mls/hr IV EDNOW ONE Stop: 12/08/18 16:10 Last Admin: 12/08/18 16:06 Dose: 50 mls Sodium Chloride (Ns) 1,000 mls @ 0 mls/hr IV EDNOW ONE; Wide Open PRN Reason: Protocol Stop: 12/08/18 16:07 Last Admin: 12/08/18 16:06 Dose: 1,000 mls Ondansetron HCl (Zofran) 4 mg IVP EDNOW ONE Stop: 12/08/18 15:57 Last Admin: 12/08/18 16:04 Dose: 4 mg Departure - Departure Disposition: [facility] Inpatient Acute Clinical Impression: Epigastric pain Sciatica Qualifiers: Laterality: right Qualified Code(s): M54.31 - Sciatica, right side Crohns disease Qualifiers: Gastrointestinal tract location: unspecified location Digestive disease complication type: unspecified complication Qualified Code(s): K50.919 - Crohn' s disease, unspecified, with unspecified complications Condition: Fair Referrals: Stefania [facility], RN, REHAB DIRECTOR [Primary Care Provider] - As per Instructions
[2018-12-08] MEDS ORDERED: FAMOTIDINE 20 MG/NACL 50 ML IV ONE (15:56)
[2018-12-08] MEDS ORDERED: ONDANSETRON 4 MG/2 ML VIAL IVP ONE (15:56)
[2018-12-08] MEDS ORDERED: fentaNYL 100 MCG/2 ML INJ IVP ONE ×2 (15:56→17:31)
[2018-12-08] MEDS ORDERED: NS 1,000 ML IV ONE (16:06)
[2018-12-08 16:07] LABS: PLATELET COUNT 214 10^3/uL (150-400)
[2018-12-08] MEDS ORDERED: IOPAMIDOL (ISOVUE 370) 100 ML BTL IV ONE (16:37)
[2018-12-08] MEDS ORDERED: LIDOCAINE 2% VISCOUS 15 ML UDCUP PO ONE (17:31)
[2018-12-08] MEDS ORDERED: MAG HYDROX/AL HYDROX/SIMETH 30 ML UDCUP PO ONE (17:31)
[2018-12-08] MEDS ORDERED: HYOSCYAMINE SULFATE 0.125 MG TAB PO ONE (17:31)
[2018-12-08] MEDS ORDERED: ZOLPIDEM TARTRATE 5 MG TAB PO PRN (18:04)
[2018-12-08] MEDS ORDERED: ONDANSETRON 4 MG/2 ML VIAL IVP PRN (18:04)
[2018-12-08] MEDS ORDERED: ACETAMINOPHEN 325 MG TAB PO PRN (18:04)
--- NOTE | 2018-12-08 20:24 | PDGENHP ---
History and Physical History and Physical: CC: "Worsening sciatica" HISTORY: This gentleman comes into the ER with worsening right-sided leg pain. He came into the ER yesterday complaining of what he called sciatica, will was treated there and discharged home. The pain today is worsened but his complaint is that he is unable to keep his pain medicines down due to GI illness. Notably he describes the pain as a cramping sensation accompanied by actual palpable muscle cramping in the low right buttock upper lateral right thigh and lateral right calf muscles. He denies any numbness tingling burning or other paresthesia type sensations. He says he actually 1st had this symptom in July and was treated with NSAIDs which led to resolution of the pain. The pain started acting up recently while he has been doing a lot of work on ladders at home. He has never had any diagnosed spine disorder or imaging of the spine that he recalls, other than the above symptoms being given the name sciatica. Notably the pain is not worse with movement or weight-bearing, though after he has done some walking or other activities the cramping may act up more Of some possible concern is that he has trouble with his right hip historically with osteoarthritis leading to a hip replacement followed by prosthetic infection, followed by a need for 4 surgeries for hip revision. Total of 7 hip surgeries altogether. He did have x-rays of the right hip yesterday which raise question of possible loosening of the femoral portion of the prosthesis. His most recent hip surgery was in [address] Guadalupe at [facility] in [place]. He had his most recent prior surgery by Dr. Freeman here. He has been having intermittent vomiting lately due to Crohn's, and last night this was giving him trouble when he attempted to take oral narcotic that was prescribed from his even ER visit yesterday. He states he has been having ongoing diarrhea from Crohn's disease which has been waxing and waning for several months. He recently has had an increase in prednisone for that and Dr. Turner is trying to get insurance approval to start him on a biologic agent as soon as possible. The patient denies any bleeding or fevers. 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 I have reviewed the list and ordered appropriate medicines. Medicine allergies include: Ancef, Bactrim, cefazolin, doxycycline, Keflex, oxycodone PHYSICAL EXAMINATION: Vital Signs: A bit tachycardic 101-110 otherwise stable without fever X Ray Tech: Examination: General: alert, oriented, good mentation, relaxed Skin: warm, dry, good color, no rash HEENT: normal Neck: no mass or jvd Resps: relaxed Lungs: clear breath sounds Heart: regular, no murmur Abdomen: soft, nondistended, nontender, +BS, no mass Back and extremities: Normal leg raise test on the right with no sciatica, tendon reflexes and sensory exam and motor exam all normal in the right lower extremity. Expected postsurgical changes at the right hip, some slight decreased range of motion there from the same No Bleeding or bruising Neurologic: normal speech/language, normal head chopper, no focal weakness IV site: looks normal LABORATORY DATA: CBC normal Basic met panel normal Liver panel with mildly elevated bilirubin but normal transaminases RADIOLOGY STUDIES: CT scan of abdomen is done in the ER tonight and I reviewed images: There is diffuse transmural thickening of the colon consistent with inflammatory bowel disease. There is evidence of his partial colectomy done remotely I reviewed x-ray images from yesterday's ER visit of his right hip. There is a hip prosthesis. There is extensive deformity and heterotopic ossification due to his multiple surgeries. There is as described by the radiologist a lucency along 1 portion of the proximal femoral nail. I agree there are no fractures visible on the x-ray 12 LEAD EKG: ASSESSMENT: * Right leg pain of uncertain etiology, described as cramping in the buttock, upper lateral thigh and lateral calf. Patient refers to this as sciatica but it is description is not consistent with that diagnosis * Possible loosening of femoral component of right hip prosthesis after multiple revisions for prosthetic infection (x-ray at yesterday's previous ER visit), unknown whether that could be causing some of his symptoms. Last x- rays would have been with Dr. Guadalupe at [facility] * Ongoing symptoms of Crohn's disease including diarrhea and nausea issues without fever or bleeding or abdominal pain Hard to tell if this is pain from his hip though notably it is not worse with weight-bearing. The symptoms and examination are not really consistent with sciatica and I do not think that that is what he has. It is a diffuse cramping in multiple muscle groups though all in the right leg and I am not sure of the cause PLANS: * Admission to hospital * Pain management for his leg to include scheduled Robaxin doses, p.r.n. Tramadol, p.r.n. Dilaudid; will not use NSAIDs with his issues with nausea at this moment * Will consult Dr. Suraj Freeman of Orthopedics in the morning as he knows the patient well and has done surgery on his hip * Physical occupational therapy * Continue his current steroid dose for his Crohn's colitis * Will get a stool sample to check for any possible bowel infection * Will notify GI group that he is here in the morning I have reviewed the patient's case in detail with Dr. Dr. Tonya Catalan I have reviewed the patient's past medical records as part of this assessment, including previous hospital admission records
[2018-12-08] MEDS: NS 1,000 ML IV SCH (20:29)
[2018-12-08] MEDS ORDERED: traMADol 50 MG TAB PO PRN (21:27)
[2018-12-08] MEDS: METHOCARBAMOL 1,000 MG in NS 50 ML IV SCH (21:58)
[2018-12-08] MEDS: HYDROmorphONE/DILAUDID 1 MG/ML INJ IVP PRN (21:59)
[2018-12-08] MEDS: MELATONIN 3 MG TAB PO SCH (22:58)
[2018-12-09] MEDS: HYDROmorphONE/DILAUDID 1 MG/ML INJ IVP PRN (01:42)
[2018-12-09] MEDS: METHOCARBAMOL 1,000 MG in NS 50 ML IV SCH ×3 (05:28→21:03)
--- NOTE | 2018-12-09 07:13 | PDMN ---
Medical Necessity Medical necessity: Pt meets inpt criteria per MD order and Pain Management GRG. 63 y/o presenting w/worsening R-sided leg pain, unable to keep pain meds down due to GI illness. PMHx R hip osteoarthritis/hip replacement followed by prosthetic infection w/ mult surgeries following for hip revision, Chrohn's Disease w/intermittent vomiting recently and ongoing diarrhea. Per x-ray- possible loosening of femoral componenet of R hip prosthesis. Ortho consult pending, pain management w/PO's and IV Dilaudid, GI panel pending, anticipate> 2MN for further eval/treatment of above.
[2018-12-09] MEDS: ENOXAPARIN 40 MG/0.4 ML SYR SC SCH (08:37)
[2018-12-09] MEDS: NS 1,000 ML IV SCH (13:42)
[2018-12-09] MEDS: VANCOMYCIN 125 MG/2.5 ML UDL PO SCH ×2 (15:44→21:03)
--- NOTE | 2018-12-09 16:29 | HOSPPROG ---
Hospitalist Progress Note Assessment/Plan: 63 yo M w crohns here w cdiff, sciatica cdiff: start po vanc continue meds for crohns sciatica: PT follow clinically hold on imaging h/o hip infections: hip looks good proph: lmwh dispo: inpt Subjective: cdiff + Objective: Vital Signs Temp Pulse Resp BP Pulse Ox 36.9 C 99 18 148/90 H 95 12/09/18 15:47 12/09/18 15:47 12/09/18 15:47 12/09/18 15:47 12/09/18 15:47 Microbiology 12/09/18 03:20 Gastrointestinal Tract Panel (PCR) - Final Stool Clostridium Difficile Detected 12/08/18 12/09/18 12/10/18 05:59 05:59 05:59 Intake Total 1260 Balance 1260 - Physical Exam Constitutional: no apparent distress, appears nourished Eyes: PERRL, anicteric sclera Ears, Nose, Mouth, Throat: moist mucous membranes, hearing normal Cardiovascular: regular rate and rhythym, no murmur, rub, or gallop Respiratory: no respiratory distress, no rales or rhonchi Gastrointestinal: normoactive bowel sounds, soft, non-tender abdomen Genitourinary: no bladder fullness, No escobedo in urethra Skin: warm, normal color Neurologic: AAOx3 ICD10 Worksheet Patient Problems: Problems Problem Status Onset Crohns disease Acute Epigastric pain Acute Sciatica Acute Eye injury Acute Infection of prosthetic total hip joint Acute Transient hypotension Acute
--- NOTE | 2018-12-09 17:09 | ASMTCMCOM ---
CM Note CM Note Notes: Discussed pt during rounds. Pt is retired [employer] employee. Pt admitted for cdiff and back spasms with a history of Crohns. Pt lives independently. PT/OT evals pending. CM needs TBD. CM to follow. D/C Plan: TBD Date Signed: 12/09/2018 05:09 PM Electronically Signed By:Iveth Monge
[2018-12-09] MEDS: MELATONIN 3 MG TAB PO SCH (21:03)
[2018-12-10] MEDS: NS 1,000 ML IV SCH (05:52)
[2018-12-10] MEDS: METHOCARBAMOL 1,000 MG in NS 50 ML IV SCH ×2 (05:52→15:19)
[2018-12-10] MEDS: VANCOMYCIN 125 MG/2.5 ML UDL PO SCH ×4 (05:52→21:17)
[2018-12-10] MEDS: predniSONE 10 MG TAB PO SCH (09:01)
[2018-12-10] MEDS: MULTIVITAMINS 1 EACH TAB PO SCH (09:01)
[2018-12-10] MEDS: METOPROLOL SUCCINATE XR 50 MG TAB PO SCH (09:03)
[2018-12-10] MEDS: MESALAMINE PO SCH ×2 (09:04→15:23)
[2018-12-10] MEDS: ENOXAPARIN 40 MG/0.4 ML SYR SC SCH (09:05)
--- NOTE | 2018-12-10 14:40 | HOSPPROG ---
Hospitalist Progress Note Assessment/Plan: 63 yo M w crohns here w cdiff, sciatica cdiff: start po vanc continue meds for crohns 12/10much better suspect he has had smoldering cdiff for a while sciatica: PT follow clinically hold on imaging h/o hip infections: hip looks good proph: lmwh dispo: inpt Subjective: case d/w dr landa. feels much better Objective: Vital Signs Temp Pulse Resp BP Pulse Ox 36.6 C 66 16 144/91 H 98 12/10/18 11:43 12/10/18 11:43 12/10/18 11:43 12/10/18 11:43 12/10/18 11:43 Microbiology 12/09/18 03:20 Gastrointestinal Tract Panel (PCR) - Final Stool Clostridium Difficile Detected 12/09/18 12/10/18 12/11/18 05:59 05:59 05:59 Intake Total 1260 4144 Balance 1260 4144 - Physical Exam Constitutional: no apparent distress, appears nourished Eyes: PERRL, anicteric sclera Ears, Nose, Mouth, Throat: moist mucous membranes, hearing normal Cardiovascular: regular rate and rhythym, no murmur, rub, or gallop Respiratory: no respiratory distress, no rales or rhonchi Gastrointestinal: normoactive bowel sounds, soft, non-tender abdomen Genitourinary: No escobedo in urethra Skin: warm, normal color Musculoskeletal: full muscle strength Neurologic: AAOx3 ICD10 Worksheet Patient Problems: Problems Problem Status Onset Crohns disease Acute Epigastric pain Acute Sciatica Acute Eye injury Acute Infection of prosthetic total hip joint Acute Transient hypotension Acute
[2018-12-10] MEDS: MELATONIN 3 MG TAB PO SCH (21:17)
[2018-12-11] MEDS: VANCOMYCIN 125 MG/2.5 ML UDL PO SCH ×2 (05:28→13:06)
[2018-12-11] MEDS: MULTIVITAMINS 1 EACH TAB PO SCH (09:11)
[2018-12-11] MEDS: ENOXAPARIN 40 MG/0.4 ML SYR SC SCH (09:12)
[2018-12-11] MEDS: predniSONE 10 MG TAB PO SCH (09:12)
[2018-12-11] MEDS: MESALAMINE PO SCH (09:12)
[2018-12-11] MEDS: METOPROLOL SUCCINATE XR 50 MG TAB PO SCH (09:13)
[2018-12-11 11:34] VITALS: BP 153/97
--- NOTE | 2018-12-11 11:48 | HOSPPROG ---
Hospitalist Progress Note Assessment/Plan: 63 yo M w crohns here w cdiff, sciatica cdiff: start po vanc continue meds for crohns 12/10much better suspect he has had smoldering cdiff for a while sciatica: PT follow clinically hold on imaging h/o hip infections: hip looks good proph: lmwh dispo: home today > 30 minutes Subjective: much improved Objective: Vital Signs Temp Pulse Resp BP Pulse Ox 36.6 C 69 16 153/97 H 98 12/11/18 11:32 12/11/18 11:32 12/11/18 11:32 12/11/18 11:32 12/11/18 11:32 12/10/18 12/11/18 12/12/18 05:59 05:59 05:59 Intake Total 4144 2550 Balance 4144 2550 - Physical Exam Constitutional: no apparent distress, appears nourished Eyes: PERRL, anicteric sclera Ears, Nose, Mouth, Throat: moist mucous membranes, hearing normal Cardiovascular: regular rate and rhythym, no murmur, rub, or gallop Respiratory: no respiratory distress, no rales or rhonchi Gastrointestinal: normoactive bowel sounds, soft, non-tender abdomen Genitourinary: No escobedo in urethra Skin: warm, normal color Musculoskeletal: full muscle strength Neurologic: AAOx3 Psychiatric: interacting appropriately ICD10 Worksheet Patient Problems: Problems Problem Status Onset Crohns disease Acute Epigastric pain Acute Sciatica Acute Eye injury Acute Infection of prosthetic total hip joint Acute Transient hypotension Acute
--- NOTE | 2018-12-11 12:17 | GDS ---
DISCHARGE DIAGNOSES: 1. Clostridium difficile colitis. 2. History of Crohn disease. 3. Sciatica. 4. Hypertension. Please see admission history and physical by Dr. Mau Chino. The patient presented with right-sided leg pain in the setting of ongoing diarrhea. This was attributed to his ulcerative colitis. Stool pathogen panel was sent, returned positive for C difficile. He was initiated on vancomycin, and with in 12 hours, his diarrhea improved, and the patient was clinically much better and to the point where even his sciatica improved. He remained on his standard dose of 30 of prednisone and mesalamine, and I did communicate with his g astroenterologist the diagnosis of C difficile. He will be treated for a total of 12 days with oral vancomycin. Patient is discharged home with outpatient followup today. /[id number]/MODL
--- NOTE | 2018-12-11 15:23 | ASDISCHSUM ---
Discharge Information Plan Status:Home with No Needs Medically Cleared to Leave: Discharge Date:12/11/2018 01:57 PM CM D/C Disposition:Home, Routine, Self-Care ADT D/C Disposition:Home, Routine, Self-Care Projected Discharge Date:12/11/2018 01:57 PM Transportation at D/C: Discharge Delay Reason: Follow-Up Date:12/11/2018 01:57 PM Discharge Slot: Final Diagnosis: Placement Information Patient Contact Information Contact Name:AKHIL Relationship: Address:[address] City:[place] Alternate Phone: [facility]/Zip Code:[place] [address] Email: Financial Information Financial Class:[employer] Primary Plan Desc:[facility] Primary Plan Number:[id number] Secondary Plan Desc: Secondary Plan Number: Assessment Information [facility] CM Progress Note CM Note CM Note Notes: Discussed pt during rounds. Pt is retired [employer] employee. Pt admitted for cdiff and back spasms with a history of Crohns. Pt lives independently. PT/OT evals pending. CM needs TBD. CM to follow. D/C Plan: TBD Date Signed: 12/09/2018 05:09 PM Electronically Signed By:Iveth Monge LACE LACE Length of stay for Answers: 2 days current admission Acuity / Level of Answers: Yes Care: Did the patient have an inpatient admission? Comorbidities - select Answers: Coronary Artery Disease all that apply Opioid dependence / Chronic pain Other Notes: HTN; Crohn's disease # of Emergency department Answers: 1-2 visits in the last 6 months Score: 13 Date Signed: 12/11/2018 03:22 PM Electronically Signed By:ALYSIA Montiel Case Management Discharge Plan Note Case Management Discharge Discharge Order Complete? Answers: Yes Patient to Obtain Answers: via Family Medications Transportation Arranged Answers: Family/Friends Discharge Comments Notes: Pt discharged independently. No CM needs identified. Cleared by therapies. Date Signed: 12/11/2018 03:21 PM Electronically Signed By:ALYSIA Montiel Intervention Information
== END 2018-12-11 13:57 | disposition home or self-care (01) ==
LOC: INTOOBSV 18:03 → F1N 20:00
PROVIDERS: ADMIT Internal Medicine; ATTEND Internal Medicine
DX: A04.72 Enterocolitis due to Clostridium difficile, not specified as recurrent (principal); K50.919 Crohn's disease, unspecified, with unspecified complications; M54.41 Lumbago with sciatica, right side; I10 Essential (primary) hypertension
CPT/HCPCS: 74177; 96365; 96375; 96376; 97161; 99285; G0378; J1170; J1650; J2405; J2800; J3010; J7512; Q9967

== ENCOUNTER → 2019-02-05 | Outpatient (CLI) | payer OTHER | LOC: BMCIMAGING 09:42 | PROVIDERS: ATTEND Internal Medicine Rheumatology | DX: M16.12 Unilateral primary osteoarthritis, left hip (principal) ==